=== PATIENT | male | born 1940 | race Caucasian/White ===

== ENCOUNTER 2016-05-19 15:45 | Outpatient (CLI) | payer MEDICARE, OTHER | END 2016-05-19 15:46 | disposition home or self-care (01) | DX: Z85.46 Personal history of malignant neoplasm of prostate (principal) ==

== ENCOUNTER 2016-08-02 20:03 | Emergency (ER) | payer MEDICARE, OTHER ==
[2016-08-02] MEDS ORDERED: DEXAMETHASONE 10 MG/ML VIAL PO STA (20:43)
--- NOTE | 2016-08-02 20:46 | ED Physician Documentation ---
History of Present Illness - Stated complaint Stated Complaint: DIZZINESS - Chief complaint Chief Complaint: Neuro - History obtained from History obtained from: Patient, Family - History of Present Illness Timing: Today - Additonal information Additional information: 75 y/o male has not felt well all week. This evening he developed acute dizziness accompanied by tinitus and fullness in the ears. He has been in to see his PMD and was put on some anti-histamine and this helped. Review of Systems Constitutional: denies: Fever, Chills Eyes: denies: Decreased vision Ears: reports: Ear pain, Tinnitus/ringing. denies: Drainage/discharge Nose: reports: Congestion Throat: denies: Sore throat Cardiac: denies: Chest pain / pressure, Palpitations Respiratory: denies: Dyspnea, Cough GI: denies: Abdominal Pain, Nausea, Vomiting : denies: Dysuria, Frequency Skin: denies: Rash Musculoskeletal: denies: Neck pain, Back pain, Extremity pain Neurologic: reports: Headache, Other (dizziness.). denies: Generalized weakness , Head injury, LOC PD PAST MEDICAL HISTORY - Past Medical History Cardiovascular: High cholesterol GI: GERD - Past Surgical History Past Surgical History: Yes HEENT: Cataracts - Present Medications Home Medications: Ambulatory Orders Medication Instructions Recorded Confirmed Aspirin [Ecotrin] 81 mg PO DAILY 05/23/14 05/23/14 Azithromycin [Zithromax] 250 mg PO DAILY #4 tablet 08/02/16 Cetirizine [ZyrTEC] 10 mg PO DAILY 08/02/16 08/02/16 Magnesium Citrate 400 mg PO DAILY 08/02/16 08/02/16 Multivitamin [Multiple Vitamins] 1 tab PO DAILY 08/02/16 08/02/16 raNITIdine [Zantac] 150 mg PO BID 08/02/16 08/02/16 - Allergies Allergies/Adverse Reactions: Allergies Allergy/AdvReac Type Severity Reaction Status Date / Time No Known Drug Allergies Allergy Verified 05/23/14 14:21 - Social History Does the pt smoke?: No Smoking Status: Never smoker PD ED PE NORMAL - Vitals Vital signs reviewed: Yes (hypertensive ) - General General: Alert and 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, No acute distress, Well developed/nourished - HEENT HEENT: Atraumatic, PERRL, EOMI, Other (The right TM is mildly inflammed with rounding of the umbo the left is with minimal inflamation. ) - Neck Neck: Supple, no meningeal sign, No bony TTP - Cardiac Cardiac: RRR, No murmur - Respiratory Respiratory: No respiratory distress, Clear bilaterally - Abdomen Abdomen: Soft, Non tender - Back Back: No CVA TTP, No spinal TTP - Derm Derm: Normal color, Warm and dry, No rash - Extremities Extremities: No deformity, No edema - Neuro Neuro: No motor deficit, No sensory deficit - Psych Psych: Normal mood, Normal affect Results - Vitals Vitals: Vital Signs - 24 hr 08/02/16 20:05 Temperature 36.0 C L Heart Rate 86 Respiratory 16 Rate Blood Pressure 168/82 H O2 Saturation 100 Oxygen O2 Source Room air - EKG (time done) 2021 Rate: Rate (enter#) (87) Rhythm: NSR Other comments: Other comments (RVH) Compare to prior EKG: Unchanged from prior EKG Computer interpretation: Agree with computer - Labs Labs: Laboratory Tests 08/02/16 08/02/16 08/02/16 21:00 21:00 21:00 WBC 5.4 RBC 3.65 L Hgb 12.2 L Hct 36.5 L MCV 99.8 H MCH 33.3 H MCHC 33.4 RDW 13.0 Plt Count 204 MPV 7.9 Neut # 2.4 Lymph # 2.0 Delta # 0.6 Eos # 0.3 Baso # 0.0 Absolute Nucleated RBC 0.01 Nucleated RBCs 0.2 Sodium 139 Potassium 3.8 Chloride 106 Carbon Dioxide 25 Anion Gap 8.0 BUN 27 H Creatinine 0.9 Estimated GFR (MDRD) 82 L Glucose 138 H Calcium 9.3 Total Bilirubin 0.4 AST 20 ALT 17 Alkaline Phosphatase 63 Troponin I < 0.04 Total Protein 6.3 L Albumin 4.1 Globulin 2.2 Albumin/Globulin Ratio 1.9 Lipase 23 - Rads (name of study) 2 view chest Radiology: Prelim report reviewed Procedures - IVC sono (time) 2039 Bedside IVC sono: IVC measures (cm) (1.34), IVC collapsed c insp (cm) (complete) , Dehydration (mild) PD MEDICAL DECISION MAKING - ED course Complexity details: reviewed old records, reviewed results, re-evaluated patient , considered differential, d/w patient, d/w family ED course: 75 y /o male happy to be alive for another week has developed dizziness tonight without nystagmus and without symptoms at the time I examined the patient. He has had symptoms with his ears bothering him and he has had some sinus congestion and on exam he has minimal inflamation in the right TM with rounding of the umbo and erythema. He is given decadron and we will put him on some zithromax. Departure - Departure Disposition: 01 Home, Self Care Clinical Impression: Dehydration Otitis media Qualifiers: Otitis media type: suppurative Laterality: right Chronicity: acute Recurrence: not specified as recurrent Spontaneous tympanic membrane rupture: without spontaneous rupture Qualified Code(s): H66.001 - Acute suppurative otitis media without spontaneous rupture of ear drum, right ear Condition: Stable Instructions: ED Otitis Media Acute Adult, ED Dehydration Follow-Up: Alison Puga DO [Primary Care Provider] - Prescriptions: Azithromycin [Zithromax] 250 mg PO DAILY #4 tablet
[2016-08-02] MEDS ORDERED: DEXAMETHASONE 10 MG/ML VIAL ONE (20:52)
[2016-08-02] MEDS ORDERED: CHERRY SYRUP 10 ML UDC PO ONE (20:52)
[2016-08-02 21:16] LABS: BASOPHILS % (AUTO) 0.8 %; EOSINOPHILS # (AUTO) 0.3 10^3/uL (0.0-0.7); EOSINOPHILS % (AUTO) 5.6 %; HCT - HEMATOCRIT 36.5 % (42.0-52.0); HGB - HEMOGLOBIN 12.2 g/dL (14.0-18.0); LYMPHOCYTES % (AUTO) 37.8 %; MEAN CORPUSCULAR HEMOGLOBIN 33.3 pg (27.0-31.0); MEAN CORPUSCULAR HGB CONC 33.4 g/dL (32.0-36.0); MEAN CORPUSCULAR VOLUME 99.8 fL (80.0-94.0); MEAN PLATELET VOLUME 7.9 fL (7.4-11.4); MONOCYTES # (AUTO) 0.6 10^3/uL (0.0-1.0); MONOCYTES % (AUTO) 10.8 %; NEUTROPHILS # (AUTO) 2.4 10^3/uL (1.5-6.6); NUCLEATED RED BLOOD CELLS AUTO 0.2 /100WBC; RED BLOOD COUNT 3.65 10^6/uL (4.70-6.10); UNCORRECTED WHITE BLOOD COUNT 5.4 x10^3/uL; WHITE BLOOD COUNT 5.4 x10^3/uL (4.8-10.8)
[2016-08-02 21:27] LABS: ALBUMIN/GLOBULIN RATIO 1.9 (1.0-2.2); BILIRUBIN,TOTAL 0.4 mg/dL (0.2-1.0); CALCIUM 9.3 mg/dL (8.5-10.3); CREATININE 0.9 mg/dL (0.6-1.2); POTASSIUM 3.8 mmol/L (3.5-5.0); TOTAL PROTEIN 6.3 g/dL (6.7-8.2)
[2016-08-02] MEDS ORDERED: AZITHROMYCIN 250 MG TABLET PO STA (22:26)
[2016-08-02] MEDS ORDERED: AZITHROMYCIN 250 MG TABLET PO ONE (22:39)
[2016-08-02 22:44] VITALS: BP 143/80
== END 2016-08-02 22:45 | disposition home or self-care (01) ==
LOC: ED 20:03
DX: E86.0 Dehydration (principal); H66.001 Acute suppurative otitis media without spontaneous rupture of ear drum, right ear; R42 Dizziness and giddiness; R09.81 Nasal congestion; Z79.82 Long term (current) use of aspirin
CPT/HCPCS: 36415; 80053; 83690; 84484; 85025; 93005; 93010; 99283; 99284; A9270

== ENCOUNTER 2017-04-06 08:00 | Outpatient (CLI) | payer MEDICARE, OTHER ==
[2017-04-06 13:05] LABS: ALBUMIN/GLOBULIN RATIO 1.6 (1.0-2.2); ALKALINE PHOSPHATASE 52 IU/L (42-121); ALT ALANINE AMINOTRANSFERASE 17 IU/L (10-60); AST ASPARTATE AMINOTRANSFERASE 20 IU/L (10-42); BILIRUBIN,TOTAL 0.7 mg/dL (0.2-1.0); BUN - BLOOD UREA NITROGEN 27 mg/dL (6-20); CALCIUM 9.2 mg/dL (8.5-10.3); CARBON DIOXIDE - CO2 25 mmol/L (21-32); CHLORIDE 103 mmol/L (101-111); CHOL/HDL RATIO 3.3 (<5.0); CHOLESTEROL 154 mg/dL; CREATININE 1.1 mg/dL (0.6-1.2); GFR - MDRD 65 (>89); GLUCOSE 102 mg/dL (70-100); HDL CHOLESTEROL 46 mg/dL; LDL CHOLESTEROL,CALCULATED 90 mg/dL; SODIUM 136 mmol/L (135-145); TOTAL PROTEIN 6.5 g/dL (6.7-8.2); VLDL CHOLESTEROL 18 mg/dL
[2017-04-06 13:31] LABS: BASOPHILS % (AUTO) 0.5 %; EOSINOPHILS # (AUTO) 0.3 10^3/uL (0.0-0.7); EOSINOPHILS % (AUTO) 4.5 %; HGB - HEMOGLOBIN 12.1 g/dL (14.0-18.0); LYMPHOCYTES # (AUTO) 2.5 10^3/uL (1.5-3.5); LYMPHOCYTES % (AUTO) 43.8 %; MEAN CORPUSCULAR HEMOGLOBIN 33.9 pg (27.0-31.0); MEAN CORPUSCULAR HGB CONC 33.5 g/dL (32.0-36.0); MEAN CORPUSCULAR VOLUME 101.4 fL (80.0-94.0); MONOCYTES # (AUTO) 0.6 10^3/uL (0.0-1.0); MONOCYTES % (AUTO) 9.8 %; NEUTROPHILS # (AUTO) 2.4 10^3/uL (1.5-6.6); NEUTROPHILS % (AUTO) 41.4 %; PLT - PLATELET COUNT 243 10^3/uL (130-450); RED BLOOD COUNT 3.56 10^6/uL (4.70-6.10); RED CELL DISTRIBUTION WIDTH 12.8 % (12.0-15.0); WHITE BLOOD COUNT 5.7 x10^3/uL (4.8-10.8)
== END 2017-04-06 08:01 | disposition home or self-care (01) ==
LOC: LAB.WCP 08:00
PROVIDERS: ATTEND Family Medicine
DX: R63.5 Abnormal weight gain (principal); Z85.46 Personal history of malignant neoplasm of prostate; E78.5 Hyperlipidemia, unspecified; E04.1 Nontoxic single thyroid nodule; D64.9 Anemia, unspecified
CPT/HCPCS: 36415; 80053; 80061; 84153; 84443; 85025

== ENCOUNTER 2017-09-28 17:03 | Outpatient (CLI) | payer MEDICARE, OTHER ==
--- NOTE | 2017-09-28 23:17 | Ultrasound Report ---
Procedure Date: 09/28/2017 Accession Number: [id number] / [id number] Procedure: US - Duplex Ext Veins Left CPT Code: FULL RESULT: EXAM: LEFT LOWER EXTREMITY VENOUS ULTRASOUND. EXAM DATE: 09/28/2017 05:26 PM. CLINICAL HISTORY: Leg edema, left. COMPARISON: None. TECHNIQUE: Real-time sonographic vascular imaging was performed by the structures assembler through the lower extremity utilizing both color-flow and Doppler spectral analysis. Multiple branch service representative static images were saved for review. FINDINGS: Common Femoral Vein (CFV): Normal. CFV-GSV Junction: Normal. Profunda Femoral Vein (PFV): Normal. Femoral Vein (FV) Prox: Normal. Femoral Vein (FV) Mid: Normal. Femoral Vein (FV) Dist: Normal. Popliteal Vein: Normal. Posterior Tibial Veins: Normal. Peroneal Veins: Normal. Contralateral Side CFV: Normal. Other: Peroneal vein not well seen. IMPRESSION: 1. Suboptimal visualization of peroneal vein due to soft tissue edema and body habitus. 2. Given the limitations, no evidence for deep venous thrombosis. RADIA
== END 2017-09-28 17:04 | disposition home or self-care (01) ==
LOC: DI 17:03
PROVIDERS: ATTEND Family Medicine
DX: R60.0 Localized edema (principal)

== ENCOUNTER 2018-06-08 08:41 | Outpatient (CLI) | payer MEDICARE, OTHER ==
--- NOTE | 2018-06-08 09:42 | Mammography Report ---
Reason: MASTALGIA Procedure Date: 06/08/2018 Accession Number: [id number] / [id number] Procedure: LY - Diagnostic Dig Bilat CPT Code: FULL RESULT: EXAM: Diagnostic Dig Bilat DATE: 06/08/2018 9:31 AM CLINICAL HISTORY: 77-year-old male with prior history of benign excisional left breast in 1966 possibly for gynecomastia. Long-term swelling with occasional tenderness in the right breast. TECHNIQUE: Bilateral CC and MLO views were obtained. COMPARISON: None FINDINGS: The breasts demonstrate diffuse fatty replacement bilaterally. Right breast: There is a mild to moderate volume of parenchymal tissue in the subareolar breast, corresponding to area of symptoms. There are no suspicious masses, calcifications or areas of distortion. Left breast: There are changes of prior excisional biopsy. Small amount of subareolar parenchymal tissue is present. There are no suspicious masses, calcifications or areas of nonoperative distortion. IMPRESSION: Right breast: Mild to moderate gynecomastia corresponds to site of patient's symptoms. Benign. BI-RADS Category 2. Clinical follow-up is recommended; patient was advised to return for any increase in current symptoms or new symptoms/concerns. Otherwise no recommendations for imaging follow-up. Left breast: Benign. BI-RADS Category 2. BI-RADS CATEGORY 2: Benign findings STANDARD QUALIFYING STATEMENTS: 1. This examination was not reviewed with the aid of Computer-Aided Detection (CAD). 2. A negative or benign imaging report should not preclude biopsy if clinically suspicious findings are present. 3. Dense breasts may obscure an underlying neoplasm. 4. This examination was reviewed without the aid of 3D breast imaging (tomosynthesis).
== END 2018-06-08 08:42 | disposition home or self-care (01) ==
LOC: DI 08:41
PROVIDERS: ATTEND Family Medicine
DX: N62 Hypertrophy of breast (principal)
CPT/HCPCS: 77066

== ENCOUNTER 2018-08-03 07:24 | Outpatient (CLI) | payer MEDICARE, OTHER ==
[2018-08-03 12:29] LABS: BASOPHILS % (AUTO) 0.8 %; EOSINOPHILS # (AUTO) 0.3 10^3/uL (0.0-0.7); HGB - HEMOGLOBIN 12.4 g/dL (14.0-18.0); LYMPHOCYTES # (AUTO) 1.8 10^3/uL (1.5-3.5); MEAN CORPUSCULAR HGB CONC 33.7 g/dL (32.0-36.0); MEAN CORPUSCULAR VOLUME 100.9 fL (80.0-94.0); MEAN PLATELET VOLUME 8.4 fL (7.4-11.4); MONOCYTES # (AUTO) 0.5 10^3/uL (0.0-1.0); MONOCYTES % (AUTO) 10.6 %; NEUTROPHILS % (AUTO) 43.6 %; PLT - PLATELET COUNT 214 10^3/uL (130-450); RED BLOOD COUNT 3.64 10^6/uL (4.70-6.10); RED CELL DISTRIBUTION WIDTH 13.1 % (12.0-15.0); WHITE BLOOD COUNT 4.6 x10^3/uL (4.8-10.8)
[2018-08-03 13:29] LABS: ALBUMIN 3.6 g/dL (3.2-5.5); ALBUMIN/GLOBULIN RATIO 1.4 (1.0-2.2); ALKALINE PHOSPHATASE 53 IU/L (42-121); ALT ALANINE AMINOTRANSFERASE 16 IU/L (10-60); AST ASPARTATE AMINOTRANSFERASE 20 IU/L (10-42); BILIRUBIN,TOTAL 0.7 mg/dL (0.2-1.0); BUN - BLOOD UREA NITROGEN 24 mg/dL (6-20); CALCIUM 9.1 mg/dL (8.5-10.3); CARBON DIOXIDE - CO2 25 mmol/L (21-32); CHLORIDE 106 mmol/L (101-111); CHOL/HDL RATIO 3.6 (<5.0); CHOLESTEROL 145 mg/dL; CREATININE 0.9 mg/dL (0.6-1.2); GFR - MDRD 82 (>89); GLUCOSE 98 mg/dL (70-100); HDL CHOLESTEROL 40 mg/dL; LDL CHOLESTEROL,CALCULATED 90 mg/dL; LDL/HDL RATIO 2.3 (<3.6); SODIUM 138 mmol/L (135-145); TOTAL PROTEIN 6.1 g/dL (6.7-8.2); VLDL CHOLESTEROL 15 mg/dL
== END 2018-08-03 07:25 | disposition home or self-care (01) ==
LOC: LAB.WCP 07:24
PROVIDERS: ATTEND Family Medicine
DX: E78.5 Hyperlipidemia, unspecified (principal); Z79.899 Other long term (current) drug therapy; Z85.46 Personal history of malignant neoplasm of prostate
CPT/HCPCS: 36415; 80053; 80061; 83721; 84153; 85025

== ENCOUNTER 2018-11-01 14:14 | Observation (INO) | payer MEDICARE, OTHER ==
[2018-11-01] MEDS ORDERED: NITROGLYCERIN 2% PASTE TOP STA (14:26)
[2018-11-01] MEDS ORDERED: ASPIRIN CHEW 81 MG TABLET PO STA (14:26)
--- NOTE | 2018-11-01 14:33 | ED Physician Documentation ---
PD HPI CHEST PAIN - Stated complaint Stated Complaint: CHEST PX - Chief complaint Chief Complaint: Cardiac - History obtained from History obtained from: Patient - History of Present Illness Timing - onset: Today (78-year-old gentleman with no history of coronary disease, had a negative chest pain work-up at [facility] for him consisting of stress testing about 2 years ago. He had a mild episode of brief chest pain a couple of weeks ago and today developed substernal chest pressure with dizziness radiating to the left arm and left jaw with light activity about a half an hour ago. He feels somewhat better now but has some residual pressure.) Review of Systems Ten Systems: 10 systems reviewed and negative Constitutional: denies: Fever, Chills Cardiac: reports: Chest pain / pressure, Palpitations (pounding) Respiratory: denies: Dyspnea, Cough GI: denies: Abdominal Pain, Nausea, Vomiting, Diarrhea Musculoskeletal: denies: Neck pain, Back pain, Pain with weight bearing PD PAST MEDICAL HISTORY - Past Medical History Cardiovascular: High cholesterol Respiratory: None Endocrine/Autoimmune: None GI: GERD : Other HEENT: None Psych: None Musculoskeletal: None Derm: None - Past Surgical History Past Surgical History: Yes HEENT: Cataracts - Present Medications Home Medications: Ambulatory Orders Medication Instructions Recorded Confirmed Aspirin [Ecotrin] 81 mg PO DAILY 05/23/14 05/23/14 Azithromycin [Zithromax] 250 mg PO DAILY #4 tablet 08/02/16 Cetirizine [ZyrTEC] 10 mg PO DAILY 08/02/16 08/02/16 Magnesium Citrate 400 mg PO DAILY 08/02/16 08/02/16 Multivitamin [Multiple Vitamins] 1 tab PO DAILY 08/02/16 08/02/16 raNITIdine [Zantac] 150 mg PO BID 08/02/16 08/02/16 - Allergies Allergies/Adverse Reactions: Allergies Allergy/AdvReac Type Severity Reaction Status Date / Time No Known Drug Allergies Allergy Verified 05/23/14 14:21 - Social History Does the pt smoke?: No Smoking Status: Never smoker Does the pt drink ETOH?: No Does the pt have substance abuse?: No - Family History Family history: reports: Non contributory PD ED PE NORMAL - Vitals Vital signs reviewed: Yes - General General: Alert and 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, No acute distress - HEENT HEENT: PERRL, EOMI - Neck Neck: Supple, no meningeal sign, No bony TTP - Cardiac Cardiac: Other (slight tachycardia, reg, no murmur) - Respiratory Respiratory: No respiratory distress, Clear bilaterally - Abdomen Abdomen: Non tender - Derm Derm: Normal color, Warm and dry - Extremities Extremities: No edema, No calf tenderness / cord, Other (venous stasis chgs of both legs, chronic per pt.) - Neuro Neuro: Alert and 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, Normal speech - Psych Psych: Normal mood, Normal affect Results - Vitals Vitals: Vital Signs - 24 hr 11/01/18 11/01/18 14:17 14:44 Temperature 36.5 C Heart Rate 99 91 Respiratory 16 19 Rate Blood Pressure 181/90 H 140/79 H O2 Saturation 96 97 Oxygen O2 Source Room air - EKG (time done) 1418 Rate: Rate (enter#) (103) Rhythm: Sinus tachycardia [place]: Normal Intervals: Prolonged [place] (mild, 217msec) Ischemia: Non specific changes (V mild STD V3-V6 Which is old compared with August 022016, last EKG on the chart.) Compare to prior EKG: Unchanged from prior EKG Computer interpretation: Agree with computer - Labs Labs: Laboratory Tests 11/01/18 11/01/18 11/01/18 08:46 14:25 14:25 WBC 6.9 RBC 3.75 L Hgb 12.5 L Hct 38.6 L MCV 102.9 H MCH 33.3 H MCHC 32.4 RDW 12.4 Plt Count 207 MPV 9.6 Neut # (Auto) 3.2 Lymph # (Auto) 2.6 [place] # (Auto) 0.7 Eos # (Auto) 0.3 Baso # (Auto) 0.0 Absolute Nucleated RBC 0.00 Nucleated RBC % 0.0 D-Dimer < 200.0 L Sodium 141 Potassium 4.0 Chloride 104 Carbon Dioxide 23 Anion Gap 14.0 H BUN 29 H Creatinine 1.3 H Estimated GFR (MDRD) 54 L Glucose 145 H Calcium 9.7 Total Bilirubin 0.7 AST 22 ALT 18 Alkaline Phosphatase 64 Troponin I High Sens Total Protein 7.2 Albumin 4.5 Globulin 2.7 Albumin/Globulin Ratio 1.7 Lipase 28 11/01/18 11/01/18 14:25 16:26 WBC RBC Hgb Hct MCV MCH MCHC RDW Plt Count MPV Neut # (Auto) Lymph # (Auto) [place] # (Auto) Eos # (Auto) Baso # (Auto) Absolute Nucleated RBC Nucleated RBC % D-Dimer Sodium Potassium Chloride Carbon Dioxide Anion Gap BUN Creatinine Estimated GFR (MDRD) Glucose Calcium Total Bilirubin AST ALT Alkaline Phosphatase Troponin I High Sens 7.2 13.7 Total Protein Albumin Globulin Albumin/Globulin Ratio Lipase - Rads (name of study) 1v chest Radiology: EMP read contemporaneously (Mild patchy opacity In the lateral left lung base consistent with atelectasis. Vague nodule left perihilar density which may correspond to nodule seen on prior chest CT.) PD MEDICAL DECISION MAKING - ED course ED course: 78-year-old gentleman with chest pain episode today, improved but not quite gone on arrival. His EKG is unchanged from prior. He does have hypercholesterolemia. Negative stress a few years ago. Heart score is 4. Second troponin also negative, but note that it did go up from 7-13. As such she will be placed in observation for serial monitoring, spoke with Dr. Chopra for observation at 5 PM. Departure - Departure Disposition: ED Place in Observation Clinical Impression: Chest pain Qualifiers: Chest pain type: unspecified Qualified Code(s): R07.9 - Chest pain, unspecified Condition: Stable
[2018-11-01 14:41] LABS: BASOPHILS % (AUTO) 0.6 %; EOSINOPHILS # (AUTO) 0.3 10^3/uL (0.0-0.7); EOSINOPHILS % (AUTO) 4.2 %; HGB - HEMOGLOBIN 12.5 g/dL (14.0-18.0); LYMPHOCYTES # (AUTO) 2.6 10^3/uL (1.5-3.5); LYMPHOCYTES % (AUTO) 38.2 %; MEAN CORPUSCULAR HEMOGLOBIN 33.3 pg (27.0-31.0); MEAN CORPUSCULAR HGB CONC 32.4 g/dL (32.0-36.0); MEAN CORPUSCULAR VOLUME 102.9 fL (80.0-94.0); MEAN PLATELET VOLUME 9.6 fL (7.4-11.4); MONOCYTES # (AUTO) 0.7 10^3/uL (0.0-1.0); MONOCYTES % (AUTO) 9.9 %; NEUTROPHILS # (AUTO) 3.2 10^3/uL (1.5-6.6); NEUTROPHILS % (AUTO) 46.8 %; PLT - PLATELET COUNT 207 10^3/uL (130-450); RED BLOOD COUNT 3.75 10^6/uL (4.70-6.10); RED CELL DISTRIBUTION WIDTH 12.4 % (12.0-15.0); WHITE BLOOD COUNT 6.9 x10^3/uL (4.8-10.8)
[2018-11-01 14:52] LABS: ALBUMIN 4.5 g/dL (3.2-5.5); ALBUMIN/GLOBULIN RATIO 1.7 (1.0-2.2); BILIRUBIN,TOTAL 0.7 mg/dL (0.2-1.0); CALCIUM 9.7 mg/dL (8.5-10.3); CREATININE 1.3 mg/dL (0.6-1.2); TOTAL PROTEIN 7.2 g/dL (6.7-8.2)
--- NOTE | 2018-11-01 15:00 | XRAY Report ---
Reason: chest pain Procedure Date: 11/01/2018 Accession Number: [id number] / [id number] Procedure: XR - Chest 1 View X-Ray CPT Code: 84864 FULL RESULT: EXAM: CHEST RADIOGRAPHY EXAM DATE: 11/01/2018 02:34 PM. CLINICAL HISTORY: Chest pain. COMPARISON: CHEST 2 VIEW PA/LAT 05/23/2014 3:15 PM CHEST W/ 11/19/2014 1:08 PM. TECHNIQUE: 1 view. FINDINGS: Heart size is normal. Calcified plaques in the aortic arch. No consolidation, pleural effusion, pneumothorax. Mild patchy opacity in the left costophrenic angle. There is a vague 1.3 cm nodular density in the left perihilar region, which may correspond to the nodule seen on the prior CT chest from 2014. IMPRESSION: Mild patchy opacity in the lateral left lung base likely representing atelectasis. Otherwise no acute cardiopulmonary findings. Vague nodular density in the left perihilar region, which may correspond to the nodule seen on the prior CT chest from October 2014. RADIA
[2018-11-01] MEDS ORDERED: ACETAMINOPHEN 325 MG TABLET PO PRN (16:58)
[2018-11-01] MEDS ORDERED: oxyCODONE 5 MG TABLET PO PRN (16:58)
[2018-11-01] MEDS ORDERED: SODIUM CHLORIDE FLUSH 0.9% 10 ML SYRINGE IVP PRN (16:58)
[2018-11-01] MEDS ORDERED: ONDANSETRON ODT 4 MG TABLET TL PRN (16:58)
[2018-11-01] MEDS ORDERED: ATORVASTATIN 40 MG TABLET PO STA (17:40)
[2018-11-01] MEDS ORDERED: ONDANSETRON 4 MG/2 ML VIAL IVP PRN (17:47)
--- NOTE | 2018-11-01 17:49 | HISTORY & PHYSICAL EXAMINATION ---
Chief Complaint - Chief Complaint Chief Complaint: chest pain History of Present Illness - History of Present Illness HPI Comment/Other: Mr. Shell is a 78-year-old gentleman with hx of GERD, HLD, and chest pain for three times in the past, which he had negative stress testing about [address] [facility], no known history of coronary disease, who present ER complain chest pain. pt report his chest pain "move" from anterior chest to inferior chest, t hen allover his left chest. chest pain is like-dull, does not radiate to other locations. his chest pain does not associate with shortness of breath, nausea, vomiting, diaphoresis. He report he has hx of GERD. He report he had a mild episode of brief chest pain a couple of weeks ago. He today developed substernal chest pressure with dizziness when he did his garden work. He report he did not drink enough water. His EKG is unchanged from prior. His first and Second troponin both were negative, but note that it did go up from 7 to 13 but still in the normal arrange in high sensitivity troponin test. pt is admitted in observation unit for chest pain work up. History - Past Medical History Cardiovascular: reports: High cholesterol Respiratory: reports: None Endocrine/Autoimmune: reports: None GI: reports: GERD : reports: Other HEENT: reports: None Psych: reports: None Musculoskeletal: reports: None Derm: reports: None - Past Surgical History HEENT: reports: Cataracts - Family & Social History Family History Comment/Other: pt report he is living at [place]. he has been working at [employer] for over 30 yrs. he walked with every day for 2-3 miles. Social History Notes: he report he stopped cigarette somking about 25 yrs ago, social drink, denies drug issue. - POLST POLST Status: Full Code Meds/Allgy - Home Medications Home Medications: Ambulatory Orders Medication Instructions Recorded Confirmed Aspirin [Ecotrin] 81 mg PO TUFR 05/23/14 11/01/18 Cetirizine [ZyrTEC] 10 mg PO DAILY 08/02/16 11/01/18 Multivitamin [Multiple Vitamins] 1 tab PO DAILY 08/02/16 11/01/18 raNITIdine [Zantac] 150 mg PO BID 08/02/16 08/02/16 - Allergies Allergies/Adverse Reactions: Allergies Allergy/AdvReac Type Severity Reaction Status Date / Time No Known Drug Allergies Allergy Verified 05/23/14 14:21 Review of Systems - Constitutional Constitutional: denies: Fatigue, Fever, Chills, Malaise, Weakness, Poor appetite, Diaphoresis, Night sweats, Weight gain, Weight loss - Eyes Eyes: denies: Pain, Irritation, Amaurosis, Blurred vision, Spots in vision, Field loss, Vision loss, Dipolpia, Corrective lenses - Ears, Nose & Throat Ears, Nose & Throat: denies: Ear pain, Hearing loss, Hearing aids, Tinnitus, Vertigo, Nasal pain, Nasal discharge, Nosebleeds, Nasal obstruction, Nasal congestion, Postnasal drainage, Dentures, Sore throat, Hoarseness, Mouth lesions, Bleeding gums - Cardiovascular Cariovascular: reports: Chest pain. denies: Irregular heart rate, Palpitations, Edema, Lightheadedness, Syncope, Exertional dyspnea, Decr. exercise tolerance - Respiratory Respiratory: denies: Cough, Sputum production, Wheezing, Snoring, Hemoptysis, Orthopnea, SOB at rest, SOB with exertion, Apnea, Stridor - Gastrointestinal Gastrointestinal: denies: Abdominal pain, Abdominal distention, Constipation, Diarrhea, Change in bowel habits, Rectal bleeding, Black stools, Bloody stools, Nausea, Vomiting, Bile emesis, Cain blood emesis, Coffee grounds emesis, Reflux/heartburn - Genitourinary Genitourinary: denies: Dysuria, Frequency, Urgency, Hematuria, Incontinence, Flank pain, Nocturia, Urethral discharge - Musculoskeletal Musculoskeletal: denies: Muscle pain, Back pain, Muscle aches, Stiffness, Limited range of motion, Muscle weakness, Gout, Joint pain, Joint swelling - Integumentary Integumentary: denies: Rash, Pruritis, Lesions, Dryness, Lumps, Acne, Pigment changes, Nail changes - Neurological Neurological: denies: General weakness, Focal weakness, Headache, Dizziness, Numbness, Memory problems, Pre-existing deficit, Abnormal gait, Seizures, Incoordination, Slurred speech - Psychiatric Psychiatric: denies: Depression, Anxiety, Suicidal, Delusions, Hallucinations, Homicidal - Endocrine Endocrine: denies: Polyuria, Polydypsia, Polyphagia, Intolerance to cold - Hematologic/Lymphatic Hematologic/Lymphatic: denies: Anemia, Bruising, Petechiae, Blood clots, Lymphadenopathy, Bleeding tendencies Exam - Vital Signs Reviewed Vital Signs: Yes Vital Signs: Vital Signs x48h Temp Pulse Resp BP Pulse Ox 11/01/18 17:10 77 19 137/81 H 99 11/01/18 14:44 91 19 140/79 H 97 11/01/18 14:17 36.5 C 99 16 181/90 H 96 - Physical Exam General Appearance: positive: No acute distress, Alert. negative: Lethargic Eyes Bilateral: positive: Normal inspection, PERRL, No lid inflammation, Conjunctivae nml ENT: positive: ENT inspection nml, Pharynx nml, No signs of dehydration. negative: Purulent nasal drainage, Pharyngeal erythema, Oral lesions Neck: positive: Thyroid nml, No JVD, Trachea midline. negative: Thyromegaly, Lymphadenopathy (R), Lymphadenopathy (L), Stiff neck, Swelling/bruising, Tracheal deviation Respiratory: positive: Chest non-tender, No respiratory distress, Breath sounds nml. negative: Wheezes, Rales, Rhonchi Cardiovascular: positive: Regular rate & rhythm, No murmur, No gallop. n egative: Irregularly irregular, Extrasystoles, Tachycardia, Bradycardia, JVD present, Systolic murmur, Diastolic murmur Peripheral Pulses: positive: 2+ Abdomen: positive: Non-tender, No organomegaly, Nml bowel sounds, No distention. negative: Tenderness, Guarding, Rebound Back: positive: Nml inspection. negative: CVA tenderness (R), CVA tenderness (L) Skin: positive: Color nml, No rash, Warm, Dry. negative: Cyanosis, Diaphoresis, Pallor Extremities: positive: Non-tender, Full ROM, Nml appearance. negative: Calf tenderness, Joint swelling, Jessica's sign/cords Neurologic/Psychiatric: positive: Oriented x3, Motor nml, Sensation nml, Mood/affect nml. negative: Weakness, Sensory loss, Facial droop, Slurred/abnml speech, Depressed mood/affect Sepsis Event Note (H) - Evaluation Current Stage of Sepsis: Ruled out Conclusion/Plan - Problem List (1) Chest pain Conclusion/Plan: so his test Troponin and EKG did not indicate ACS. we will finish serial troponin, EKG as needed, will order stress test ER already gave pt 325 mg Aspirin, continue aspirin will check Lipid panel and start Lipitor now tele and vital monitor check ECHO, will followup Qualifiers: Chest pain type: unspecified Qualified Code(s): R07.9 - Chest pain, unspecified (2) Dehydration Conclusion/Plan: pt report dehydration, and creatinine increase from 0.9 to 1.3 IVF of NS, lab monitor (3) GERD (gastroesophageal reflux disease) Conclusion/Plan: pt has hx of GERD, start Protonix (4) Mild chronic anemia Conclusion/Plan: pt has hx of mild chronic anemia. today his HGB is 12.6. pt is asymptomatic. Pt denies GI bleed continue lab monitor now (5) HLD (hyperlipidemia) Conclusion/Plan: we will check lipid panel, start on Lipitor now (6) Full code status Conclusion/Plan: pt clearly request full code - Lab Results Fish Bones: 11/02/18 04:15 11/02/18 04:15 Core Measures - Anticipated LOS I expect patient to be DC'd or transferred within 96 hours.: Yes - DVT/VTE - Prophylaxis VTE/DVT Device ordered at admit?: Yes VTE/DVT Prophylaxis med ordered at admit?: Yes
[2018-11-01] MEDS: SODIUM CHLORIDE FLUSH 0.9% 10 ML SYRINGE IVP SCH (18:09)
[2018-11-01] MEDS: PANTOPRAZOLE 40 MG TABLET PO SCH (18:41)
[2018-11-01] MEDS: SODIUM CHLORIDE 0.9% 1,000 ML IV SCH (18:41)
[2018-11-02] MEDS: SODIUM CHLORIDE FLUSH 0.9% 10 ML SYRINGE IVP SCH ×2 (03:32→10:15)
[2018-11-02] MEDS: SODIUM CHLORIDE 0.9% 1,000 ML IV SCH (04:30)
[2018-11-02 04:51] LABS: BASOPHILS % (AUTO) 0.7 %; EOSINOPHILS # (AUTO) 0.3 10^3/uL (0.0-0.7); EOSINOPHILS % (AUTO) 4.8 %; HGB - HEMOGLOBIN 10.6 g/dL (14.0-18.0); LYMPHOCYTES # (AUTO) 2.6 10^3/uL (1.5-3.5); LYMPHOCYTES % (AUTO) 45.5 %; MEAN CORPUSCULAR HEMOGLOBIN 34.3 pg (27.0-31.0); MEAN CORPUSCULAR HGB CONC 33.2 g/dL (32.0-36.0); MEAN CORPUSCULAR VOLUME 103.2 fL (80.0-94.0); MEAN PLATELET VOLUME 9.7 fL (7.4-11.4); MONOCYTES # (AUTO) 0.6 10^3/uL (0.0-1.0); MONOCYTES % (AUTO) 10.5 %; NEUTROPHILS # (AUTO) 2.2 10^3/uL (1.5-6.6); NEUTROPHILS % (AUTO) 38.2 %; PLT - PLATELET COUNT 173 10^3/uL (130-450); RED BLOOD COUNT 3.09 10^6/uL (4.70-6.10); RED CELL DISTRIBUTION WIDTH 12.3 % (12.0-15.0); WHITE BLOOD COUNT 5.8 x10^3/uL (4.8-10.8)
[2018-11-02 05:13] LABS: BUN - BLOOD UREA NITROGEN 26 mg/dL (6-20); CALCIUM 8.7 mg/dL (8.5-10.3); CARBON DIOXIDE - CO2 23 mmol/L (21-32); CHLORIDE 110 mmol/L (101-111); CHOL/HDL RATIO 3.7 (<5.0); CHOLESTEROL 129 mg/dL; CREATININE 1.2 mg/dL (0.6-1.2); GFR - MDRD 59 (>89); GLUCOSE 103 mg/dL (70-100); HDL CHOLESTEROL 35 mg/dL; LDL CHOLESTEROL,CALCULATED 81 mg/dL; LDL/HDL RATIO 2.3 (<3.6); MAGNESIUM 1.9 mg/dL (1.7-2.8); SODIUM 143 mmol/L (135-145); VLDL CHOLESTEROL 13 mg/dL
[2018-11-02] MEDS: PANTOPRAZOLE 40 MG TABLET PO SCH (06:48)
[2018-11-02] MEDS ORDERED: ENOXAPARIN 40 MG/0.4 ML SYRINGE SUBQ SCH (09:00)
[2018-11-02] MEDS ORDERED: POLYETHYLENE GLYCOL 3350 17 GM PACKET PO SCH (09:00)
[2018-11-02] MEDS ORDERED: ASPIRIN CHEW 81 MG TABLET PO SCH (09:00)
[2018-11-02 09:43] LABS: ABSOLUTE RETICS # AUTO 0.057 10^6/uL (0.020-0.110); RED BLOOD COUNT 3.47 10^6/uL (4.70-6.10)
[2018-11-02 09:56] LABS: % IRON SATURATION 33 % (20-50); IRON 95 ug/dL (45-182); TOTAL IRON BINDING CAPACITY 287 ug/dL (250-450); TRANSFERRIN 205 mg/dL (180-329)
[2018-11-02 10:18] LABS: FERRITIN 107.7 ng/mL (23.9-336.2)
[2018-11-02 15:59] VITALS: BP 144/71
--- NOTE | 2018-11-02 15:59 | Nuclear Medicine Report ---
Reason: chest pain Procedure Date: 11/02/2018 Accession Number: [id number] / [id number] Procedure: NM - Myocardial Perfusion STR/RST CPT Code: FULL RESULT: EXAM: SINGLE-ISOTOPE EXERCISE STRESS TEST. SINGLE-ISOTOPE AND ONE-DAY REST/STRESS MYOCARDIAL PERFUSION SCANS WITH TOMOGRAPHIC IMAGING, QUANTITATIVE ANALYSIS, WALL MOTION ANALYSIS AND CALCULATION OF EJECTION FRACTION. EXAM DATE: 11/02/2018 02:34 PM. CLINICAL HISTORY: Chest pain. COMPARISON: None available. TECHNIQUE: A rest myocardial perfusion scan was done with tomography after the intravenous administration of 10.1 mCi Tc-99m sestamibi. After an appropriate delay, a treadmill exercise stress was performed according to department protocol. The patient exercised for 7 minutes and 0 seconds. The maximum heart rate was 145 bpm, which was 101% of the maximum predicted heart rate of 143 bpm. At approximately peak heart rate, 40.9 mCi of Tc-99m sestamibi was injected for stress myocardial perfusion scan. Motion correction was applied when appropriate. Gated tomographic images were obtained for wall motion analysis and computation of left ventricular ejection fraction. FINDINGS: On visual analysis, there is attenuation artifact in the anteroseptal wall, more severe on the rest images compared to the stress images. No convincing reversible perfusion defects. Computer analysis suggests a defect in the lateral wall; this is not appreciated on visual analysis. Summed stress score 9 Summed rest score not calculated Summed difference score not calculated Wall motion analysis demonstrates no focal wall motion abnormality The left ventricular end-diastolic volume is 75 cc. The left ventricular end-systolic volume is 15 cc. The left ventricular ejection fraction is calculated to be 81%. IMPRESSION: 1. On visual analysis, no convincing significant fixed or reversible perfusion defects. There is a presumed attenuation artifact in the anteroseptal wall. 2. Normal left ventricular ejection fraction of 81%. 3. Normal segmental and global wall motion. 4. Normal left ventricular cavity size, no change with stress. 5. Computer analysis suggests a defect in the lateral wall; this is not appreciated on visual analysis. The computer did not calculate summed rest or summed difference scores. Please correlate findings with stress ECG tracings and procedure notes. [facility] ADDENDUM: 11/02/18 16:14 The technologist was able to resolve the computer processing issue. The injected radiotracer was technetium 99m tetrofosmin. Computer generated: Summed stress score 7 Summed rest score 2 Summed difference score 5 Computer analysis again suggests a reversible lateral wall defect which is not appreciated on visual analysis. Discussed by telephone with Dr. Humphreys at 1600 hrs.
--- NOTE | 2018-11-02 16:05 | Discharge Plan ---
Discharge Plan Problem Reviewed?: Yes Disposition: Home, Self Care Condition: Stable Diet: Regular Activity Restrictions: Activity as Tolerated Shower Restrictions: No (fall precaution) Instruction Topics: ED Chest Pain Atypical Unkn Cause, Dehydration, GERD Health Concerns: chest pain, atypical. dehydration Plan of Treatment: you likely have atypical chest pain. Your image studies including ECHO, EKG, stress test, and troponin tests are all unremarkable. please Keep you hydration special in summer and outdoor activities. Care Goals: stabilization of your medical condition Assessment: assessment as the above Additional Instructions or Follow Up instructions: you may followup your PCP in two weeks. Should your symptoms return or worsen, you may present ER or call 911 for help. No Smoking: If you smoke, Please STOP! Call for help. Follow-up with: Alison Puga DO [Primary Care Provider] -
--- NOTE | 2018-11-02 16:12 | DISCHARGE SUMMARY ---
Discharge Summary Discharge Date: 11/02/18 Discharging Provider: KEY Primary Care Provider: Inocencia Puga Condition at Discharge: Stable Discharge Disposition: 01 Home, Self Care Discharge Facility Name: home - DIAGNOSES Admission Diagnoses: (1) Chest pain (2) Dehydration (3) GERD (gastroesophageal reflux disease) (4) Mild chronic anemia (5) HLD (hyperlipidemia) Discharge Diagnoses with Status of Each Condition: 1) Chest pain resolved (2) Dehydration resolved (3) GERD (gastroesophageal reflux disease) stable (4) Mild chronic anemia stable (5) HLD (hyperlipidemia) stable - HPI History of Present Illness: Mr. Shell is a 78-year-old gentleman with hx of GERD, HLD, and chest pain for three times in the past, which he had negative stress testing about 2 years ago in [facility], no known history of coronary disease, who present ER complain chest pain. pt report his chest pain "move" from anterior chest to inferior chest, then allover his left chest. chest pain is like-dull, does not radiate to other locations. his chest pain does not associate with shortness of breath, nausea, vomiting, diaphoresis. He report he has hx of GERD. He report he had a mild epis ode of brief chest pain a couple of weeks ago. He today developed substernal chest pressure with dizziness when he did his garden work. He report he did not drink enough water. His EKG is unchanged from prior. His first and Second troponin both were negative, but note that it did go up from 7 to 13 but still in the normal arrange in high sensitivity troponin test. pt is admitted in observation unit for chest pain work up. - HOSPITAL COURSE Hospital Course: pt was admitted for chest pain. pt's serial troponin, EKG, ECHO, stress test all were unremarkable. it is likely atypical chest pain. 1) Chest pain resolved. It is likely atypical chest pain. pt repot he has no more chest pain. pt's EKG, ECHO, stress test all were unremarkable. (2) Dehydration resolved. pt is advised to keep hydration (3) GERD (gastroesophageal reflux disease) stable (4) Mild chronic anemia stable, followup PCP (5) HLD (hyperlipidemia) stable - ALLERGIES Allergies/Adverse Reactions: Allergies Allergy/AdvReac Type Severity Reaction Status Date / Time No Known Drug Allergies Allergy Verified 05/23/14 14:21 - MEDICATIONS Home Medications: Ambulatory Orders Medication Instructions Recorded Confirmed Aspirin [Ecotrin] 81 mg PO TUFR 05/23/14 11/01/18 Cetirizine [ZyrTEC] 10 mg PO DAILY 08/02/16 11/01/18 Multivitamin [Multiple Vitamins] 1 tab PO DAILY 08/02/16 11/01/18 raNITIdine [Zantac] 150 mg PO BID PRN 08/02/16 11/02/18 Simvastatin 20 mg PO QPM 11/02/18 11/02/18 - PHYSICAL EXAM AT DISCHARGE General Appearance: positive: No acute distress, Alert. negative: Lethargic Eyes Bilateral: positive: Normal inspection, PERRL, No lid inflammation, Conjunctivae nml ENT: positive: ENT inspection nml, Pharynx nml, No signs of dehydration. negative: Purulent nasal drainage, Pharyngeal erythema, Oral lesions Neck: positive: Nml inspection, Thyroid nml, No JVD, Trachea midline. negative: Thyromegaly, Lymphadenopathy (R), Lymphadenopathy (L), Stiff neck, Swelling/bruising, Tracheal deviation Respiratory: positive: Chest non-tender, No respiratory distress, Breath sounds nml. negative: Wheezes, Rales, Rhonchi Cardiovascular: positive: Regular rate & rhythm, No murmur, No gallop. negative: Irregularly irregular, Extrasystoles, Tachycardia, Bradycardia, JVD present, Systolic murmur, Diastolic murmur Peripheral Pulses: positive: 2+ Abdomen: positive: Non-tender, No organomegaly, Nml bowel sounds, No distention. negative: Tenderness, Guarding, Rebound Back: positive: Nml inspection. negative: CVA tenderness (R), CVA tenderness (L) Skin: positive: Color nml, No rash, Warm, Dry. negative: Cyanosis, Diaphoresis, Pallor, Skin rash Extremities: positive: Non-tender, Full ROM, Nml appearance. negative: Calf tenderness, Joint swelling, Jessica's sign/cords Neurologic/Psychiatric: positive: Oriented x3, Motor nml, Sensation nml, Mood/affect nml. negative: Weakness, Sensory loss, Facial droop, Slurred/abnml speech, Depressed mood/affect - LABS Result Diagrams: 11/02/18 04:15 11/02/18 04:15 - SEPSIS Current Stage of Sepsis: Ruled out - FOLLOW UP Follow Up: you may followup your PCP in two weeks. Should your symptoms return or worsen, you may present ER or call 911 for help. - TIME SPENT Time Spent in Discharge (Minutes): 50
--- NOTE | 2018-11-02 16:55 | CARDIAC PROCEDURE NOTE ---
Stress Test Report Service Date: 11/02/18 Service Time: 12:50 Ordering Provider: CLAUDIA Blakely Indication for Test: chest pain. Significant Medical History: 78-year-old white male with a history chest pain. He does have a history of gastroesophageal reflux disease. He now presents with another episode of chest pain. Dull, starting in the anterior upper chest and moving to the lower chest. Nonradiating. No shortness of breath, nausea, emesis, diaphoresis. No report of left arm pain or jaw pain. He had a brief episode of chest pressure 2 weeks ago which resolved on its own after a few seconds. Today he developed substernal chest pressure with dizziness when he was doing gardening work. He usually walks 2 miles daily at the [employer] and when it's winter, on a treadmill at home. Per his history, had a negative stress test in 2016, echocardiogram November 02, 2018 shows left ventricular wall thickness normal. Ejection fraction 70 to 75%. Diastolic function indeterminant. Mild to moderate increase in left atrial volume index. Moderate right atrial enlargement. Mild aortic sclerosis. No stenosis. RVSP at rest 47 mmHg. Cardiac Risk Factors: Male sex, hyperlipidemia. Denies smoking, diabetes, family history of CAD, or hypertension Type of Stress Test: ETT with Myocardial Perfusion Imaging Pharmacologic Agent: Lexiscan Procedure: Baseline EKG with normal sinus rhythm. Baseline heart rate 63 at rest. Normal axis. Slight RSR' pattern in V1 with early repolarization. No acute ischemic changes. Patient performed a treadmill exercise using a Nelson protocol. He completed 6 minutes and 58 seconds, and an estimated workload of 8.57 metabolic equivalents. The test was terminated due to fatigue and shortness of breath with leg stiffness. Isotope injected 1 minute before stopping test. No chest pain. The first 2 stages of Nelson protocol were quite easy for him and he considered it a light workload. He did not feel fatigue or shortness of breath until he entered the last part of stage II and was beginning stage III where his shortness of breath and leg fatigue made him stop. Good exercise tolerance. The maximum heart rate was 145 bpm which is 101% of maximum predicted heart rate. Preexercise his blood pressure was 158/64. During exercise he did reach a peak blood pressure of 178/68. Mildly blunted hypertensive response. Stress EKG continued to have sinus rhythm. A more pronounced RSR' in V1. Minimal nondiagnostic ST depression in the inferior limb leads and lateral leads. Not diagnostic of ischemia. Nonspecific. Rest EKG had occasional PVC and occasional PAC but no alarming ectopy. Findings: Negative EKG for acute ischemia. Good exercise tolerance. Low risk stratifi cation according to this EKG. Rest and stress imaging with isotope will be under separate dictation with Radia.
[2018-11-02] MEDS ORDERED: ATORVASTATIN 40 MG TABLET PO SCH ×2 (21:00)
== END 2018-11-02 17:00 | disposition home or self-care (01) ==
LOC: ED 14:14 → MS2 16:58
PROVIDERS: ADMIT Specialist; ATTEND Nurse Practitioner Gerontology
DX: R07.89 Other chest pain (principal); E86.0 Dehydration; K21.9 Gastro-esophageal reflux disease without esophagitis; D64.89 Other specified anemias; E78.5 Hyperlipidemia, unspecified; Z79.82 Long term (current) use of aspirin; Z79.899 Other long term (current) drug therapy; Z87.891 Personal history of nicotine dependence
CPT/HCPCS: 36415; 71045; 78452; 80048; 80053; 80061; 82607; 82728; 83540; 83615; 83690; 83735; 84466; 84484; 85025; 85044; 85379; 93005; 93017; 93306; 96360; 96361; 96372; 99284; 99285; A9270; A9500; G0378; J1650; 83721

== ENCOUNTER 2019-10-11 09:00 | Outpatient (CLI) | payer MEDICARE, OTHER | END 2019-10-11 23:59 | disposition home or self-care (01) | LOC: COV 09:00 | PROVIDERS: ATTEND Family Medicine | DX: R50.9 Fever, unspecified (principal); M79.10 Myalgia, unspecified site; R09.81 Nasal congestion; Z20.828 Contact with and (suspected) exposure to other viral communicable diseases ==

== ENCOUNTER 2019-11-29 08:00 | Outpatient (CLI) | payer MEDICARE, OTHER ==
[2019-11-29 12:19] LABS: BASOPHILS % (AUTO) 0.7 %; EOSINOPHILS # (AUTO) 0.3 10^3/uL (0.0-0.7); EOSINOPHILS % (AUTO) 5.7 %; HGB - HEMOGLOBIN 12.5 g/dL (14.0-18.0); LYMPHOCYTES # (AUTO) 2.3 10^3/uL (1.5-3.5); LYMPHOCYTES % (AUTO) 42.7 %; MEAN CORPUSCULAR HEMOGLOBIN 34.7 pg (27.0-31.0); MEAN CORPUSCULAR HGB CONC 33.5 g/dL (32.0-36.0); MEAN CORPUSCULAR VOLUME 103.6 fL (80.0-94.0); MONOCYTES # (AUTO) 0.6 10^3/uL (0.0-1.0); MONOCYTES % (AUTO) 10.7 %; NEUTROPHILS # (AUTO) 2.2 10^3/uL (1.5-6.6); PLT - PLATELET COUNT 208 10^3/uL (130-450); RED CELL DISTRIBUTION WIDTH 12.3 % (12.0-15.0); WHITE BLOOD COUNT 5.4 x10^3/uL (4.8-10.8)
[2019-11-29 12:57] LABS: FERRITIN 107.1 ng/mL (23.9-336.2)
[2019-11-29 13:02] LABS: % IRON SATURATION 32 % (20-50); ALBUMIN 4.1 g/dL (3.2-5.5); ALBUMIN/GLOBULIN RATIO 1.6 (1.0-2.2); ALKALINE PHOSPHATASE 57 IU/L (42-121); ALT ALANINE AMINOTRANSFERASE 18 IU/L (10-60); AST ASPARTATE AMINOTRANSFERASE 21 IU/L (10-42); BILIRUBIN,TOTAL 0.6 mg/dL (0.2-1.0); BUN - BLOOD UREA NITROGEN 27 mg/dL (6-20); CALCIUM 9.4 mg/dL (8.5-10.3); CARBON DIOXIDE - CO2 25 mmol/L (21-32); CHLORIDE 107 mmol/L (101-111); CHOL/HDL RATIO 3.3 (<5.0); CHOLESTEROL 167 mg/dL; CREATININE 1.2 mg/dL (0.6-1.2); GLUCOSE 103 mg/dL (70-100); HDL CHOLESTEROL 51 mg/dL; IRON 100 ug/dL (45-182); LDL CHOLESTEROL,CALCULATED 95 mg/dL; LDL/HDL RATIO 1.9 (<3.6); SODIUM 138 mmol/L (135-145); TOTAL IRON BINDING CAPACITY 309 ug/dL (250-450); TOTAL PROTEIN 6.6 g/dL (6.7-8.2); TRANSFERRIN 221 mg/dL (180-329); VLDL CHOLESTEROL 21 mg/dL
== END 2019-11-29 23:59 | disposition home or self-care (01) ==
LOC: LAB.WCP 08:00
PROVIDERS: ATTEND Family Medicine
DX: E78.5 Hyperlipidemia, unspecified (principal); D64.9 Anemia, unspecified; J44.9 Chronic obstructive pulmonary disease, unspecified; E04.1 Nontoxic single thyroid nodule
CPT/HCPCS: 36415; 80053; 80061; 82607; 82728; 83540; 83721; 84443; 84466; 85025

== ENCOUNTER → 2020-01-01 | Outpatient (CLI) | payer MEDICARE, OTHER | LOC: LAB.WCP 18:40 | PROVIDERS: ATTEND Family Medicine | DX: D64.9 Anemia, unspecified (principal) | CPT/HCPCS: 82274 ==

== ENCOUNTER 2020-04-14 01:43 | Emergency (ER) | payer MEDICARE, OTHER ==
[2020-04-14 02:20] LABS: BASOPHILS # (AUTO) 0.1 10^3/uL (0.0-0.1); BASOPHILS % (AUTO) 0.9 %; EOSINOPHILS # (AUTO) 0.3 10^3/uL (0.0-0.7); EOSINOPHILS % (AUTO) 5.2 %; HGB - HEMOGLOBIN 12.1 g/dL (14.0-18.0); LYMPHOCYTES # (AUTO) 2.2 10^3/uL (1.5-3.5); LYMPHOCYTES % (AUTO) 39.2 %; MEAN CORPUSCULAR HEMOGLOBIN 34.1 pg (27.0-31.0); MEAN CORPUSCULAR HGB CONC 32.6 g/dL (32.0-36.0); MEAN CORPUSCULAR VOLUME 104.5 fL (80.0-94.0); MEAN PLATELET VOLUME 9.5 fL (7.4-11.4); MONOCYTES # (AUTO) 0.7 10^3/uL (0.0-1.0); MONOCYTES % (AUTO) 12.6 %; NEUTROPHILS # (AUTO) 2.3 10^3/uL (1.5-6.6); NEUTROPHILS % (AUTO) 41.9 %; PLT - PLATELET COUNT 190 10^3/uL (130-450); RED BLOOD COUNT 3.55 10^6/uL (4.70-6.10); RED CELL DISTRIBUTION WIDTH 12.2 % (12.0-15.0); WHITE BLOOD COUNT 5.5 x10^3/uL (4.8-10.8)
[2020-04-14 02:34] LABS: ALBUMIN 4.3 g/dL (3.2-5.5); ALBUMIN/GLOBULIN RATIO 1.7 (1.0-2.2); BILIRUBIN,TOTAL 0.5 mg/dL (0.2-1.0); CALCIUM 9.3 mg/dL (8.5-10.3); CREATININE 1.7 mg/dL (0.6-1.2); TOTAL PROTEIN 6.8 g/dL (6.7-8.2)
[2020-04-14] MEDS ORDERED: SODIUM CHLORIDE 0.9% 1,000 ML IV STA (03:21)
[2020-04-14] MEDS ORDERED: cefTRIAXone 1 GM in SODIUM CHLORIDE 0.9% MINIBAG 100 ML IV STA (03:21)
--- NOTE | 2020-04-14 03:26 | ED Physician Documentation ---
PD HPI CHEST PAIN - Stated complaint Stated Complaint: HEART RACING - Chief complaint Chief Complaint: Cardiac - History obtained from History obtained from: Patient - History of Present Illness Timing - onset: Enter time (2329), Today Timing - onset during: Rest Timing - duration: Minutes Timing - details: Abrupt onset, Now resolved Quality: Tightness, Sharp, Throbbing Location: Substernal, Left chest Radiation: Neck, Back Improved by: Other (spontaneously resolved) Worsened by: Other (nothing) Associated symptoms: Palpitations. No: Shortness of air, Diaphoresis, Nausea, Vomiting, Feeling faint / dizzy, General Weakness, Cough Similar symptoms before: Diagnosis (dehydration) Recently seen: Not recently seen - Additional information Additional information: Previously well 79-year-old male with a history of reflux and prostate cancer worked out in his yard today and the day prior and this evening when he got into bed he laid down on his left side which he usually does not do and as he was laying there he began to feel his heart pounding against the side of his chest. He felt the pain radiate up a radiate up into his neck and shoulder and he became quite concerned with this became a bit anxious and has come to the emergency department. He states that currently he is not having symptoms. He states symptoms started at about 11:30 at night. Review of Systems Constitutional: denies: Fever Eyes: denies: Decreased vision Ears: denies: Ear pain Nose: denies: Rhinorrhea / runny nose, Congestion Throat: denies: Sore throat Cardiac: reports: Chest pain / pressure, Palpitations. denies: Pedal edema, Calf pain Respiratory: denies: Dyspnea, Cough, Wheezing GI: denies: Abdominal Pain, Nausea, Vomiting : denies: Dysuria, Frequency PD PAST MEDICAL HISTORY - Past Medical History Past Medical History: Yes Cardiovascular: High cholesterol Respiratory: None Endocrine/Autoimmune: None GI: GERD : Other HEENT: None Psych: None Musculoskeletal: None Derm: None - Past Surgical History Past Surgical History: Yes HEENT: Cataracts - Present Medications Home Medications: Ambulatory Orders Medication Instructions Recorded Confirmed Aspirin [Ecotrin] 81 mg PO TUFR 05/23/14 04/14/20 Cetirizine [ZyrTEC] 10 mg PO DAILY 08/02/16 04/14/20 Multivitamin [Multiple Vitamins] 1 tab PO DAILY 08/02/16 04/14/20 raNITIdine [Zantac] 150 mg PO BID PRN 08/02/16 04/14/20 Simvastatin 20 mg PO QPM 11/02/18 04/14/20 Azithromycin [Zithromax] 250 mg PO DAILY #6 tablet 04/14/20 - Allergies Allergies/Adverse Reactions: Allergies Allergy/AdvReac Type Severity Reaction Status Date / Time No Known Drug Allergies Allergy Verified 04/14/20 02:19 - Social History Does the pt smoke?: No Smoking Status: Never smoker Does the pt drink ETOH?: Yes Does the pt have substance abuse?: No - Immunizations Immunizations are current?: Yes - POLST POLST Status: Full Code PD ED PE NORMAL - Vitals Vital signs reviewed: Yes (hypertensive ) - General General: Alert and 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, Well developed/nourished, Other (anxious ) - HEENT HEENT: Atraumatic, PERRL, EOMI - Neck Neck: Supple, no meningeal sign, No bony TTP - Cardiac Cardiac: No murmur, Other (tachy to 100) - Respiratory Respiratory: No respiratory distress, Clear bilaterally - Abdomen Abdomen: Soft, Non tender - Back Back: No CVA TTP, No spinal TTP - Derm Derm: Normal color, Warm and dry, No rash - Extremities Extremities: No deformity, Other (brawny edema bilat LE non-pitting ) - Neuro Neuro: Alert and 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, optometric tech 2-12 intact, No motor deficit, No sensory deficit, Normal speech Eye Opening: Spontaneous Motor: Obeys Commands Verbal: Oriented GCS Score: 15 - Psych Psych: Normal mood, Normal affect Results - Vitals Vitals: Vital Signs - 24 hr 04/14/20 02:12 Temperature 37.7 C Heart Rate 94 Respiratory 16 Rate Blood Pressure 154/80 H O2 Saturation 94 Oxygen O2 Source Room air - EKG (time done) 0149 Rate: Rate (enter#) (104) Rhythm: Sinus tachycardia, LAE (probable) [place]: LAD (borderline) Intervals: Prolonged MN (borderline) Compare to prior EKG: Unchanged from prior EKG (SPT 11-01-2018 no significant change) Computer interpretation: Agree with computer - Labs Labs: Laboratory Tests 04/14/20 04/14/20 04/14/20 02:18 02:18 02:18 WBC 5.5 RBC 3.55 L Hgb 12.1 L Hct 37.1 L MCV 104.5 H MCH 34.1 H MCHC 32.6 RDW 12.2 Plt Count 190 MPV 9.5 Neut # (Auto) 2.3 Lymph # (Auto) 2.2 Griggs # (Auto) 0.7 Eos # (Auto) 0.3 Baso # (Auto) 0.1 Absolute Nucleated RBC 0.00 Nucleated RBC % 0.0 D-Dimer 206.4 Sodium 143 Potassium 3.8 Chloride 106 Carbon Dioxide 24 Anion Gap 13.0 BUN 34 H Creatinine 1.7 H Estimated GFR (MDRD) 39 L Glucose 116 H Calcium 9.3 Total Bilirubin 0.5 AST 27 ALT 24 Alkaline Phosphatase 65 Troponin I High Sens Total Protein 6.8 Albumin 4.3 Globulin 2.5 Albumin/Globulin Ratio 1.7 Lipase 35 04/14/20 02:18 WBC RBC Hgb Hct MCV MCH MCHC RDW Plt Count MPV Neut # (Auto) Lymph # (Auto) Griggs # (Auto) Eos # (Auto) Baso # (Auto) Absolute Nucleated RBC Nucleated RBC % D-Dimer Sodium Potassium Chloride Carbon Dioxide Anion Gap BUN Creatinine Estimated GFR (MDRD) Glucose Calcium Total Bilirubin AST ALT Alkaline Phosphatase Troponin I High Sens 7.0 Total Protein Albumin Globulin Albumin/Globulin Ratio Lipase - Rads (name of study) chest Radiology: Prelim report reviewed (Impression: Subtle changes on the left, possibly infiltrate or pneumonitis.), EMP read indepedently, See rad report Procedures - IVC sono (time) 0320 Bedside IVC sono: IVC measures (cm) (1.2), IVC collapsed c insp (cm) (complete), Dehydration (est 1 liter deficit) PD MEDICAL DECISION MAKING - ED course Complexity details: reviewed old records, reviewed results, re-evaluated patient, considered differential, d/w patient ED course: 79-year-old male with symptoms of left-sided chest pain that is now resolved had an episode where he apparently was feeling his heart beating against the side of his chest. He is found to be mildly dehydrated on interrogation the inferior vena cava he is given some saline and x-ray of the chest is concerning for possible infiltrate in the left base. Patient is given Rocephin intravenously and we will give him a course of azithromycin. The remainder have a his work-up was otherwise unremarkable. Departure - Departure Disposition: Home, Self Care Clinical Impression: Dehydration Pneumonia Qualifiers: Pneumonia type: due to unspecified organism Laterality: left Lung location: unspecified part of lung Qualified Code(s): J18.9 - Pneumonia, unspecified organism Condition: Stable Instructions: ED Dehydration, ED Pneumonia Adult Follow-Up: Alison Puga DO [Primary Care Provider] - Prescriptions: Azithromycin [Zithromax] 250 mg PO DAILY #6 tablet
[2020-04-14] MEDS ORDERED: cefTRIAXone 1 GM VIAL ONE (03:35)
[2020-04-14 05:11] VITALS: BP 133/74
--- NOTE | 2020-04-14 10:14 | XRAY Report ---
PROCEDURE: Chest 1 View X-Ray INDICATIONS: chest pain TECHNIQUE: One view of the chest was acquired. COMPARISON: 11/01/2018 FINDINGS: Overlying EKG wires. Surgical changes and devices: None. Lungs and pleura: There is subtle opacity at the inferior lateral aspect of the left lower lobe. Th e lungs are otherwise clear. No significant pleural effusion or pneumothorax. Mediastinum: Mediastinal contours appear normal. Heart size is normal. Bones and chest wall: No suspicious bony lesions. Overlying soft tissues appear unremarkable. IMPRESSION: Subtle opacities of the left lung base may represent developing pneumonia. Agree with preliminary report. Reviewed by: Reid Chu DO on 04/14/2020 9:13 AM [facility] Approved by: Reid Chu DO on 04/14/2020 9:13 AM [facility] Station ID: [id number]
== END 2020-04-14 05:10 | disposition home or self-care (01) ==
LOC: ED 01:43
DX: J18.9 Pneumonia, unspecified organism (principal); E86.0 Dehydration; R00.0 Tachycardia, unspecified; R07.89 Other chest pain; Z79.82 Long term (current) use of aspirin
CPT/HCPCS: 36415; 80053; 83690; 84484; 85025; 85379; 93005; 96361; 96365; 99284

== ENCOUNTER 2020-05-27 08:00 | Outpatient (CLI) | payer MEDICARE, OTHER ==
[2020-05-27 11:47] LABS: ALBUMIN/GLOBULIN RATIO 1.7 (1.0-2.2); ALKALINE PHOSPHATASE 63 IU/L (42-121); ALT ALANINE AMINOTRANSFERASE 19 IU/L (10-60); AST ASPARTATE AMINOTRANSFERASE 18 IU/L (10-42); BILIRUBIN,TOTAL 0.8 mg/dL (0.2-1.0); BUN - BLOOD UREA NITROGEN 29 mg/dL (6-20); CALCIUM 9.3 mg/dL (8.5-10.3); CARBON DIOXIDE - CO2 24 mmol/L (21-32); CHLORIDE 105 mmol/L (101-111); CHOL/HDL RATIO 3.2 (<5.0); CHOLESTEROL 158 mg/dL; CREATININE 1.1 mg/dL (0.6-1.2); GFR - MDRD 65 (>89); GLUCOSE 134 mg/dL (70-100); HDL CHOLESTEROL 49 mg/dL; LDL CHOLESTEROL,CALCULATED 88 mg/dL; LDL/HDL RATIO 1.8 (<3.6); SODIUM 137 mmol/L (135-145); TOTAL PROTEIN 6.4 g/dL (6.7-8.2); TRIGLYCERIDES 103 mg/dL; VLDL CHOLESTEROL 21 mg/dL
[2020-05-27 12:01] LABS: THYROID STIMULATING HORMONE 2.04 uIU/mL (0.34-5.60)
[2020-05-27 12:05] LABS: BASOPHILS # (AUTO) 0.1 10^3/uL (0.0-0.1); BASOPHILS % (AUTO) 1.1 %; EOSINOPHILS # (AUTO) 0.4 10^3/uL (0.0-0.7); HCT - HEMATOCRIT 36.5 % (42.0-52.0); HGB - HEMOGLOBIN 11.9 g/dL (14.0-18.0); LYMPHOCYTES % (AUTO) 44.2 %; MEAN CORPUSCULAR HEMOGLOBIN 34.3 pg (27.0-31.0); MEAN CORPUSCULAR HGB CONC 32.6 g/dL (32.0-36.0); MEAN CORPUSCULAR VOLUME 105.2 fL (80.0-94.0); MONOCYTES # (AUTO) 0.4 10^3/uL (0.0-1.0); MONOCYTES % (AUTO) 9.8 %; NEUTROPHILS # (AUTO) 1.6 10^3/uL (1.5-6.6); NEUTROPHILS % (AUTO) 36.7 %; PLT - PLATELET COUNT 213 10^3/uL (130-450); RED BLOOD COUNT 3.47 10^6/uL (4.70-6.10); RED CELL DISTRIBUTION WIDTH 12.5 % (12.0-15.0); WHITE BLOOD COUNT 4.5 x10^3/uL (4.8-10.8)
== END 2020-05-27 23:59 | disposition home or self-care (01) ==
LOC: LAB.WCP 08:00
PROVIDERS: ATTEND Family Medicine
DX: E78.5 Hyperlipidemia, unspecified (principal); E04.1 Nontoxic single thyroid nodule; D64.9 Anemia, unspecified
CPT/HCPCS: 36415; 80053; 80061; 83721; 84443; 85025

== ENCOUNTER 2020-05-30 11:28 | Outpatient (CLI) | payer MEDICARE, OTHER ==
--- NOTE | 2020-05-30 16:55 | XRAY Report ---
PROCEDURE: Chest 2 View X-Ray INDICATIONS: PNEUMONIA TECHNIQUE: 2 view(s) of the chest. COMPARISON: 04/14/2020 single view chest. FINDINGS: Surgical changes and devices: None. Lungs and pleura: No pleural effusions or pneumothorax. Lungs are clear. Mediastinum: Mediastinal contours are normal. Heart size is normal. Bones and chest wall: No suspicious bony abnormalities. Soft tissues appear unremarkable. IMPRESSION: No pneumonia found. Reviewed by: Demetrius Hedrick MD on 05/30/2020 3:54 PM [facility] Approved by: Demetrius Hedrick MD on 05/30/2020 3:54 PM [facility] Station ID: [id number]
== END 2020-05-30 11:29 | disposition home or self-care (01) ==
LOC: DI.N 11:28
PROVIDERS: ATTEND Family Medicine
DX: J18.9 Pneumonia, unspecified organism (principal)

== ENCOUNTER 2020-08-29 08:00 | Outpatient (CLI) | payer MEDICARE, OTHER | END 2020-08-29 23:59 | disposition home or self-care (01) | LOC: LAB.N 08:00 | PROVIDERS: ATTEND Family Medicine | DX: J06.9 Acute upper respiratory infection, unspecified (principal); Z20.822 Contact with and (suspected) exposure to COVID-19 ==

== ENCOUNTER 2021-02-22 15:28 | Emergency (ER) | payer MEDICARE, OTHER ==
[2021-02-22] MEDS ORDERED: ASPIRIN 325 MG TABLET PO STA (15:51)
[2021-02-22] MEDS ORDERED: NITROGLYCERIN SL 0.4 MG TABLET SL STA (15:56)
--- NOTE | 2021-02-22 15:59 | ED Physician Documentation ---
History of Present Illness - Stated complaint Stated Complaint: CHEST PX - Chief complaint Chief Complaint: Cardiac - Additonal information Additional information: 80-year-old male presents the emergency department for evaluation of chest pain. Reports that he was at home this morning hanging lights inside his house across a bookcase and he began to have some chest discomfort as he was climbing been up and down off a stepstool. No nausea no vomiting some vague dizziness. He went to a local walk-in clinic where they referred him to the ER. This gentleman has never had a CO. He reports that 2018 he underwent a stress test and an echocardiogram that in review of the chart here was unremarkable. Patient is free of chest pain or any shortness of air at this time. Review of Systems Constitutional: denies: Fever, Chills Ears: reports: Reviewed and negative Nose: reports: Reviewed and negative Throat: reports: Reviewed and negative Cardiac: reports: Chest pain / pressure, Palpitations. denies: Pedal edema, Calf pain Respiratory: denies: Dyspnea, Cough GI: denies: Abdominal Pain, Vomiting : reports: Reviewed and negative Skin: reports: Reviewed and negative Musculoskeletal: reports: Reviewed and negative Neurologic: denies: Generalized weakness, Focal weakness, Numbness PD PAST MEDICAL HISTORY - Past Medical History Cardiovascular: High cholesterol Respiratory: None Endocrine/Autoimmune: None GI: GERD : Other HEENT: None Psych: None Musculoskeletal: None Derm: None - Past Surgical History Past Surgical History: Yes HEENT: Cataracts - Present Medications Home Medications: Ambulatory Orders Medication Instructions Recorded Confirmed Aspirin [Ecotrin] 81 mg PO TUFR 05/23/14 04/14/20 Cetirizine [ZyrTEC] 10 mg PO DAILY 08/02/16 04/14/20 Multivitamin [Multiple Vitamins] 1 tab PO DAILY 08/02/16 04/14/20 raNITIdine [Zantac] 150 mg PO BID PRN 08/02/16 04/14/20 Simvastatin 20 mg PO QPM 11/02/18 04/14/20 Azithromycin [Zithromax] 250 mg PO DAILY #6 tablet 04/14/20 Nitroglycerin [Nitrostat] 0.4 mg SL Q5MIN PRN #30 tablet 02/22/21 - Allergies Allergies/Adverse Reactions: Allergies Allergy/AdvReac Type Severity Reaction Status Date / Time No Known Drug Allergies Allergy Verified 02/22/21 15:33 - Social History Does the pt smoke?: No Smoking Status: Never smoker Does the pt drink ETOH?: Yes Does the pt have substance abuse?: No - Immunizations Immunizations are current?: Yes - POLST POLST Status: Full Code PD ED PE NORMAL - General General: Alert and 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, No acute distress - HEENT HEENT: PERRL - Neck Neck: Supple, no meningeal sign - Cardiac Cardiac: RRR, No murmur - Respiratory Respiratory: Clear bilaterally - Abdomen Abdomen: Normal bowel sounds, Soft, Non tender, Non distended Results - Vitals Vitals: Vital Signs - 24 hr 02/22/21 02/22/21 02/22/21 15:33 16:15 17:26 Temperature 36.5 C Heart Rate 100 85 75 Respiratory 16 25 H 21 Rate Blood Pressure 172/76 H 160/84 H 129/77 O2 Saturation 96 95 94 Oxygen O2 Source Room air - EKG (time done) 1541 Rate: Rate (enter#) (101) Rhythm: NSR [place]: LAD Intervals: Prolonged [place], Prolonged QT Ischemia: Normal ST segments Compare to prior EKG: Unchanged from prior EKG Computer interpretation: Agree with computer - Labs Labs: Laboratory Tests 02/22/21 02/22/21 02/22/21 15:59 15:59 15:59 WBC 5.8 RBC 3.77 L Hgb 12.7 L Hct 38.3 L MCV 101.6 H MCH 33.7 H MCHC 33.2 RDW 12.2 Plt Count 216 MPV 9.2 Neut # (Auto) 3.3 Lymph # (Auto) 1.6 Hart # (Auto) 0.6 Eos # (Auto) 0.3 Baso # (Auto) 0.0 Absolute Nucleated RBC 0.00 Nucleated RBC % 0.0 PT 10.7 INR 1.0 Sodium 137 Potassium 3.7 Chloride 103 Carbon Dioxide 23 Anion Gap 11.0 BUN 24 H Creatinine 1.1 Estimated GFR (MDRD) 65 L Glucose 110 H Calcium 9.6 Total Bilirubin 0.5 AST 22 ALT 20 Alkaline Phosphatase 67 Troponin I High Sens B-Natriuretic Peptide Total Protein 7.3 Albumin 4.5 Globulin 2.8 Albumin/Globulin Ratio 1.6 Lipase 26 02/22/21 02/22/21 02/22/21 15:59 15:59 17:02 WBC RBC Hgb Hct MCV MCH MCHC RDW Plt Count MPV Neut # (Auto) Lymph # (Auto) Hart # (Auto) Eos # (Auto) Baso # (Auto) Absolute Nucleated RBC Nucleated RBC % PT INR Sodium Potassium Chloride Carbon Dioxide Anion Gap BUN Creatinine Estimated GFR (MDRD) Glucose Calcium Total Bilirubin AST ALT Alkaline Phosphatase Troponin I High Sens 11.8 19.4 B-Natriuretic Peptide 76 Total Protein Albumin Globulin Albumin/Globulin Ratio Lipase - Rads (name of study) CXR Radiology: Final report received (COPD; no acute cardiopulmonary process) PD MEDICAL DECISION MAKING - ED course Complexity details: reviewed results, re-evaluated patient, considered differential, d/w patient ED course: 80-year-old male presents emergency department for evaluation of chest pain that began when he was stringing lights across the bookshelves at home. He described it as stabbing sternal and nonradiating. No associated diaphoresis nausea or vomiting. He did have an echocardiogram and a nuclear stress test approximately 2 years ago that did not show any worrisome findings. He presents here rather well appearing. He was given aspirin and nitroglycerin. Full relief of pain. EKG was nonischemic. Initial troponin 11.9. On repeat 19.4. Both of these are below the threshold of a positive troponin. Discussed with the patient that the etiology of his chest pain is not clear though given resolution with nitroglycerin and that it occurred during activity this was an anginal equivalent. He does have cardiology follow-up with [facility]. We will write a prescription for nitroglycerin. Advised patient to return immediately for return of his symptoms. Departure - Departure Disposition: Home, Self Care Clinical Impression: Angina of effort Chest pain Qualifiers: Chest pain type: unspecified Qualified Code(s): R07.9 - Chest pain, unspecified Condition: Stable Record reviewed to determine appropriate education?: Yes Instructions: Nitroglycerin Fast Act Dc, Angina Dc Follow-Up: Alison Puga DO [Primary Care Provider] - Prescriptions: Nitroglycerin [Nitrostat] 0.4 mg SL Q5MIN PRN #30 tablet PRN Reason: Chest Pain Comments: Fish you are seen today in the emergency department for chest pain that began while you are stringing lights in your home. Your screening EKG is unchanged from your most recent one in March. Your screening labs do not show any worrisome findings. And your chest x-ray was normal for age. However given that this chest pain occurred with activity it is concerning for angina or spasm of the coronary vessels. 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 You should have a repeat stress test and/or consideration of a cardiac angiogram. Please begin taking your 81 mg aspirin daily tomorrow. We have given you some nitroglycerin that you can use if you develop chest pain especially when walking. If using the nitroglycerin 10 minutes apart 2 times does not resolve your chest pain you are to return immediately to the ER for a second evaluation.
[2021-02-22 16:05] LABS: BASOPHILS % (AUTO) 0.7 %; EOSINOPHILS # (AUTO) 0.3 10^3/uL (0.0-0.7); EOSINOPHILS % (AUTO) 4.5 %; HCT - HEMATOCRIT 38.3 % (42.0-52.0); HGB - HEMOGLOBIN 12.7 g/dL (14.0-18.0); LYMPHOCYTES # (AUTO) 1.6 10^3/uL (1.5-3.5); MEAN CORPUSCULAR HEMOGLOBIN 33.7 pg (27.0-31.0); MEAN CORPUSCULAR HGB CONC 33.2 g/dL (32.0-36.0); MEAN CORPUSCULAR VOLUME 101.6 fL (80.0-94.0); MEAN PLATELET VOLUME 9.2 fL (7.4-11.4); MONOCYTES # (AUTO) 0.6 10^3/uL (0.0-1.0); MONOCYTES % (AUTO) 9.7 %; NEUTROPHILS # (AUTO) 3.3 10^3/uL (1.5-6.6); NEUTROPHILS % (AUTO) 57.8 %; PLT - PLATELET COUNT 216 10^3/uL (130-450); RED BLOOD COUNT 3.77 10^6/uL (4.70-6.10); RED CELL DISTRIBUTION WIDTH 12.2 % (12.0-15.0); WHITE BLOOD COUNT 5.8 x10^3/uL (4.8-10.8)
[2021-02-22 16:12] LABS: PT - PROTHROMBIN TIME 10.7 secs (9.9-12.6)
--- NOTE | 2021-02-22 16:12 | XRAY Report ---
PROCEDURE: Chest 1 View X-Ray INDICATIONS: Chest Pain TECHNIQUE: One view of the chest was acquired. COMPARISON: 05/30/2020, 11/01/2018. FINDINGS: Surgical changes and devices: None. Lungs and pleura: No pleural effusions or pneumothorax. There is hyperinflation of the lungs with f lattening of hemidiaphragms compatible COPD redemonstrated. No acute consolidation. There are a few l inear opacities within the right upper lung zone and peripheral left lung base which appear unchanged and are consistent with scarring. Mediastinum: Mediastinal contours appear normal. Heart size is normal. Bones and chest wall: No suspicious bony lesions. Overlying soft tissues appear unremarkable. IMPRESSION: 1. No acute cardiopulmonary disease. 2. Findings compatible with COPD redemonstrated. Reviewed by: Rigo Pederson MD on 02/22/2021 3:11 PM [place] Approved by: Rigo Pederson MD on 02/22/2021 3:11 PM [place] Station ID: [id number]
[2021-02-22 16:19] LABS: ALBUMIN 4.5 g/dL (3.2-5.5); ALBUMIN/GLOBULIN RATIO 1.6 (1.0-2.2); BILIRUBIN,TOTAL 0.5 mg/dL (0.2-1.0); CALCIUM 9.6 mg/dL (8.5-10.3); CREATININE 1.1 mg/dL (0.6-1.2); POTASSIUM 3.7 mmol/L (3.5-5.0); TOTAL PROTEIN 7.3 g/dL (6.7-8.2)
[2021-02-22 17:51] VITALS: BP 140/74
== END 2021-02-22 17:51 | disposition home or self-care (01) ==
LOC: ED 15:28
DX: I20.8 Other forms of angina pectoris (principal); I44.0 Atrioventricular block, first degree; R00.0 Tachycardia, unspecified; E78.00 Pure hypercholesterolemia, unspecified; Z79.82 Long term (current) use of aspirin
CPT/HCPCS: 36415; 71045; 80053; 83690; 83880; 84484; 85025; 85610; 93005; 99284; A9270

== ENCOUNTER 2021-07-02 07:07 | Outpatient (CLI) | payer MEDICARE, OTHER ==
[2021-07-02 11:55] LABS: BASOPHILS % (AUTO) 0.6 %; EOSINOPHILS # (AUTO) 0.4 10^3/uL (0.0-0.7); EOSINOPHILS % (AUTO) 5.5 %; HCT - HEMATOCRIT 37.3 % (42.0-52.0); HGB - HEMOGLOBIN 12.2 g/dL (14.0-18.0); LYMPHOCYTES # (AUTO) 2.3 10^3/uL (1.5-3.5); LYMPHOCYTES % (AUTO) 35.2 %; MEAN CORPUSCULAR HEMOGLOBIN 33.5 pg (27.0-31.0); MEAN CORPUSCULAR HGB CONC 32.7 g/dL (32.0-36.0); MEAN CORPUSCULAR VOLUME 102.5 fL (80.0-94.0); MEAN PLATELET VOLUME 10.1 fL (7.4-11.4); MONOCYTES # (AUTO) 0.7 10^3/uL (0.0-1.0); NEUTROPHILS # (AUTO) 3.1 10^3/uL (1.5-6.6); NEUTROPHILS % (AUTO) 47.5 %; PLT - PLATELET COUNT 226 10^3/uL (130-450); RED BLOOD COUNT 3.64 10^6/uL (4.70-6.10); RED CELL DISTRIBUTION WIDTH 12.3 % (12.0-15.0); WHITE BLOOD COUNT 6.6 x10^3/uL (4.8-10.8)
[2021-07-02 12:47] LABS: ALBUMIN 4.1 g/dL (3.2-5.5); ALBUMIN/GLOBULIN RATIO 1.6 (1.0-2.2); ALKALINE PHOSPHATASE 62 IU/L (42-121); ALT ALANINE AMINOTRANSFERASE 17 IU/L (10-60); AST ASPARTATE AMINOTRANSFERASE 20 IU/L (10-42); BUN - BLOOD UREA NITROGEN 27 mg/dL (6-20); CALCIUM 9.3 mg/dL (8.5-10.3); CARBON DIOXIDE - CO2 24 mmol/L (21-32); CHLORIDE 105 mmol/L (101-111); CHOL/HDL RATIO 3.3 (<5.0); CHOLESTEROL 159 mg/dL; CREATININE 1.1 mg/dL (0.6-1.2); GFR - MDRD 65 (>89); GLUCOSE 105 mg/dL (70-100); HDL CHOLESTEROL 48 mg/dL; LDL CHOLESTEROL,CALCULATED 95 mg/dL; SODIUM 139 mmol/L (135-145); TOTAL PROTEIN 6.7 g/dL (6.7-8.2); TRIGLYCERIDES 79 mg/dL; VLDL CHOLESTEROL 16 mg/dL
== END 2021-07-02 07:08 | disposition home or self-care (01) ==
LOC: LAB.N 07:07
PROVIDERS: ATTEND Family Medicine
DX: I10 Essential (primary) hypertension (principal); E78.5 Hyperlipidemia, unspecified
CPT/HCPCS: 36415; 80053; 80061; 83721; 85025

== ENCOUNTER 2021-10-17 14:18 | Emergency (ER) | payer MEDICARE, OTHER ==
[2021-10-17 14:47] VITALS: BP 161/81
--- NOTE | 2021-10-17 15:44 | XRAY Report ---
PROCEDURE: Ankle 3 View LT INDICATIONS: Trauma TECHNIQUE: 3 views of the ankle were acquired. COMPARISON: None FINDINGS: Bones: No fractures or dislocations. Ankle mortise is normally aligned. No suspicious bony lesions . Soft tissues: Lateral malleolar edema is present. Achilles tendon appears normal. IMPRESSION: No visualized acute fracture or dislocation. However, occult injury cannot be excluded. Recommend short interval imaging follow-up in 7-10 days as clinically indicated for additional evalua tion. Reviewed by: Susanna Haley MD on 10/17/2021 3:42 PM PDT Approved by: Susanna Haley MD on 10/17/2021 3:42 PM PDT Station ID: [id number]
--- NOTE | 2021-10-17 17:11 | ED Physician Documentation ---
PD HPI Fall - Stated complaint Stated Complaint: LEFT FOOT INJ - Chief complaint Chief Complaint: Trauma Ext - History obtained from History obtained from: Patient - History of Present Illness Mechanism of injury: Lost balance (he was up on stepladder about 3-4 feet and was stepping down, holding onto rope that let loose. Fell to left ankle, unclear if landed firmly or rolled ankle. Also abrasion left ortega, adn skin peel right dorsal forearm. Did not strike head.) Fall distance: Less than 5ft Where injury occurred: Home Timing - onset: Today Injury(ies) location: Right Upper Extremity, Left Lower Extremity. No: Head, Chest, Abdomen Associated symptoms: No: LOC, AMS, Neck pain, Weakness, Paresthesias Worsens with: Movement (unable to bear weight on left ankle.) Similar symptoms before: Has not had sx before Recently seen: Not recently seen Review of Systems Skin: reports: Abrasion (s) Musculoskeletal: denies: Neck pain, Back pain Neurologic: denies: Focal weakness, Numbness, Altered mental status, Headache, Head injury, LOC PD PAST MEDICAL HISTORY - Past Medical History Cardiovascular: High cholesterol Respiratory: None Endocrine/Autoimmune: None GI: GERD : Other HEENT: None Psych: None Musculoskeletal: None Derm: None - Past Surgical History Past Surgical History: Yes HEENT: Cataracts - Present Medications Home Medications: Ambulatory Orders Medication Instructions Recorded Confirmed Aspirin [Ecotrin] 81 mg PO TUFR 05/23/14 04/14/20 Cetirizine [ZyrTEC] 10 mg PO DAILY 08/02/16 04/14/20 Multivitamin [Multiple Vitamins] 1 tab PO DAILY 08/02/16 04/14/20 raNITIdine [Zantac] 150 mg PO BID PRN 08/02/16 04/14/20 Simvastatin 20 mg PO QPM 11/02/18 04/14/20 Azithromycin [Zithromax] 250 mg PO DAILY #6 tablet 04/14/20 Nitroglycerin [Nitrostat] 0.4 mg SL Q5MIN PRN #30 tablet 02/22/21 Oxycodone HCl/Acetaminophen 1 each PO Q6H PRN #18 tablet 10/17/21 [Percocet 5-325 mg Tablet] - Allergies Allergies/Adverse Reactions: Allergies Allergy/AdvReac Type Severity Reaction Status Date / Time No Known Drug Allergies Allergy Verified 10/17/21 14:47 - Social History Does the pt smoke?: No Smoking Status: Never smoker Does the pt drink ETOH?: Yes Does the pt have substance abuse?: No - Immunizations Immunizations are current?: Yes - POLST POLST Status: Full Code PD ED PE NORMAL - Vitals Vital signs reviewed: Yes - General General: Alert and 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, Well developed/nourished, Other (having pain from ankle. able to move right wrist/arm well. ) - HEENT HEENT: Atraumatic - Neck Neck: Supple, no meningeal sign, No bony TTP - Cardiac Cardiac: RRR, No murmur - Respiratory Respiratory: Clear bilaterally, Other (no chestwall tenderness. ) - Abdomen Abdomen: Soft, Non tender - Back Back: No spinal TTP - Derm Derm: Normal color, Warm and dry - Extremities Extremities: Other (left ankle with effusion and tenderness alia lateral. Also tender at calcaneal area. normal sensation, color, pulses, cap refill. abrasions left anterior lower leg. right dorsal forearm with partial thickness skin peel. No full thickness lac. ) - Neuro Neuro: Alert and 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, No motor deficit, No sensory deficit, Normal speech Results - Vitals Vitals: Vital Signs - 24 hr 10/17/21 10/17/21 10/17/21 14:42 14:47 16:47 Temperature 36.1 C L 36.1 C L 36.1 C L Heart Rate 81 81 81 Respiratory 16 16 16 Rate Blood Pressure 161/81 H 161/81 H 161/81 H O2 Saturation 98 98 98 10/17/21 20:31 Temperature 36.1 C L Heart Rate 81 Respiratory 16 Rate Blood Pressure 161/81 H O2 Saturation 98 Oxygen O2 Source Room air - Rads (name of study) left ankle Radiology: Prelim report reviewed (no fractures. COnsider occult injury.), See rad report PD MEDICAL DECISION MAKING - ED course Complexity details: reviewed results, re-evaluated patient (abrasions left ortega and right forearm cleansed and dressing. ), considered differential (ankle injury and is tender on heel as well. No visible fractures. Considered CT ankle/foot to eval at [facility]. However would not change plan currently if nondisplaced, so shared decision to f/u ortho and re-eval. ), d/w patient Departure - Departure Disposition: 01 Home, Self Care Clinical Impression: Fall from ladder Qualifiers: Encounter type: initial encounter Qualified Code(s): W11.XXXA - Fall on and from ladder, initial encounter Ankle sprain Qualifiers: Encounter type: initial encounter Involved ligament of ankle: unspecified ligament Laterality: left Qualified Code(s): S93.402A - Sprain of unspecified ligament of left ankle, initial encounter Forearm contusion Qualifiers: Encounter type: initial encounter Laterality: right Qualified Code(s): S50.11XA - Contusion of right forearm, initial encounter Lower leg abrasion Qualifiers: Encounter type: initial encounter Laterality: left Qualified Code(s): S80.812A - Abrasion, left lower leg, initial encounter Condition: Stable Record reviewed to determine appropriate education?: Yes Instructions: ED Avulsion Dermal, ED Sprain Ankle Prescriptions: Oxycodone HCl/Acetaminophen [Percocet 5-325 mg Tablet] 1 each PO Q6H PRN #18 tablet PRN Reason: pain Comments: Your x-ray does not show any obvious fractures. Consideration for very good sprain of the ankle with the swelling and pain. There could be occasionally occult fractures particularly in the heel that may not show up on plain x-ray. Initially the treatment would be the same with a cast boot nonweightbearing and crutches. Ice elevate and rest the ankle often to reduce swelling. Recheck in about 1 - 1 1/2 weeks for reevaluation and see if further treatments or imaging are needed. You will likely be in the cast boot for 3 to 4 weeks. Anti-inflammatory such as ibuprofen or naproxen 3 times daily with food. Add Tylenol every 4-6 hours if needed for pain. Alternatively you can use oxycodone/acetaminophen every 6 hours if needed for worse pain. I transmitted your prescriptions to [facility] in [place]. I am prescribing a short course of narcotic pain medication for you. These are potentially dangerous and addictive medications that should be used carefully. These medications may constipate you. Take an [id number] stool softener such as docusate twice daily with plenty of water while taking these medications. If you go 24 hours without a bowel movement, take [id number] MiraLAX, per package instructions. Do not drink or drive while taking these medications. If you received narcotic or sedating medications while in the emergency department do not drive for 24 hours. Store this medication in a safe, secure place and out of reach of children. It is a violation of federal law to give or sell this medication to another person or to use in a manner other than prescribed. The ED will not refill narcotic prescriptions, including prescriptions lost or stolen. You can dispose of unwanted medications at the [facility]'s office or at several pharmacies such as [facility]. Discharge Date/Time: 10/17/21 20:31
[2021-10-17] MEDS ORDERED: HYDROcod/ACETAM 5/325 MG TABLET PO STA (17:43)
[2021-10-17] MEDS ORDERED: KETOROLAC 30 MG/ML VIAL IM STA (17:43)
--- NOTE | 2021-10-18 14:15 | ED Physician Documentation ---
ED Addendum - Addendum Addendum: 10/18/21 14:13 The patient called and said his prescription was not available. [facility] called us and said they had not received 1. I looked up on our ambulatory orders and it look like it had been sent. I tried resending it and it would not allow me seeming like it had been sent. However [facility] says they do not have it so I canceled the first transmission and represcribed it and resent it. It appears to go through at this time.
== END 2021-10-17 20:31 | disposition home or self-care (01) ==
LOC: ED 14:18
DX: S93.402A Sprain of unspecified ligament of left ankle, initial encounter (principal); S50.11XA Contusion of right forearm, initial encounter; S80.812A Abrasion, left lower leg, initial encounter; W11.XXXA Fall on and from ladder, initial encounter
CPT/HCPCS: 73610; 96372; 99282; 99283; A9270

== ENCOUNTER 2021-11-14 12:06 | Outpatient (CLI) | payer MEDICARE, OTHER ==
[2021-11-14 12:34] LABS: CREATININE 1.1 mg/dL (0.6-1.2)
--- NOTE | 2021-11-14 13:49 | CT Report ---
PROCEDURE: LOWER EXTREMITY WO - LT INDICATIONS: NONDISPLACED FRACTURE OF CALCANEUS TECHNIQUE: Noncontrast 3-mm axial sections acquired from the distal tibial shaft to the talar dome, with coronal and sagittal reformats. For radiation dose reduction, the following was used: automated exposure c ontrol, adjustment of mA and/or kV according to patient size. COMPARISON: Left foot radiographs 11/12/2021. FINDINGS: Image quality: Excellent. Bones: There is a comminuted mildly displaced fracture of the calcaneus extending into the posterior subtalar facet with primary fracture line is seen extending into the lateral aspect of the posterior subtalar facet (Oh type 2a). There is up to a 5 mm gap along the fracture line at the posterior aspect of the posterior subtalar joint. Additional fracture components are seen extending into the m edial, lateral, and posterior calcaneal cortices as well as extending into the sinus tarsi and anteri or calcaneal process. Generalized osteopenia. Remaining visualized osseous structures are intact Soft tissues: Soft tissue edema is seen surrounding the ankle and hindfoot. The articular cartilages , ligaments, and tendons are not well evaluated with standard CT. There is fatty infiltration of the intrinsic foot musculature that is most likely related to chronic denervation changes. IMPRESSION: 1.Comminuted mildly displaced fracture of the calcaneus extending to the posterior subtalar facet (Sa nders type 2A). 2.Generalized osteopenia. 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 Reviewed by: Enrico Sewell MD on 11/14/2021 1:47 PM PDT Approved by: Enrico Sewell MD on 11/14/2021 1:47 PM PDT Station ID: [id number]
== END 2021-11-14 12:07 | disposition home or self-care (01) ==
LOC: DI 12:06
PROVIDERS: ATTEND Physician Assistant
DX: S92.002A Unspecified fracture of left calcaneus, initial encounter for closed fracture (principal); M85.862 Other specified disorders of bone density and structure, left lower leg
CPT/HCPCS: 36415; 82565

== ENCOUNTER 2021-12-09 02:39 | Outpatient (CLI) | payer MEDICARE, OTHER | END 2021-12-09 02:40 | disposition critical access hospital (66) | LOC: EMS 02:39 | DX: I47.1 Supraventricular tachycardia (principal) | CPT/HCPCS: A0425; A0427 ==

== ENCOUNTER 2021-12-09 03:00 | Emergency (ER) | payer MEDICARE, OTHER ==
--- NOTE | 2021-12-09 03:02 | ED Physician Documentation ---
History of Present Illness - Stated complaint Stated Complaint: PALPITATIONS - History obtained from History obtained from: Patient - History of Present Illness Timing: Enter time (01:00), Today Pain level max: 0 Pain level now: 0 Improved by: resolved with 6mg IV adenosine given by EMS - Additonal information Additional information: BIBA. At approximately 1 AM, patient was awake at home reading in bed when he turned on his side and experienced sudden onset of rapid palpitations. Denies chest pain/pressure/tightness, denies dyspnea, denies lightheadedness. He says he has had similar sensation of rapid palpitations before but episodes had always been self-limited, resolving prior to medical attention. Patient says he has had stress tests including nuclear stress tests in the past with consistently negative/unremarkable results (he estimates the most recent was 1-2 years ago). He is found to be in SVT by EMS with heart rate as high as 179, given 6mg IV adenosine with conversion to sinus tachycardia 120s with gradual decrease in rate en route and arrives with normal vital signs including heart rate 90s NSR and asymptomatic. Review of Systems Cardiac: reports: Palpitations. denies: Chest pain / pressure, Pedal edema, Calf pain Respiratory: reports: Reviewed and negative GI: reports: Reviewed and negative Musculoskeletal: denies: Extremity swelling PD PAST MEDICAL HISTORY - Past Medical History Cardiovascular: High cholesterol Respiratory: None Endocrine/Autoimmune: None GI: GERD : Other HEENT: None Psych: None Musculoskeletal: None Derm: None - Past Surgical History Past Surgical History: Yes HEENT: Cataracts - Present Medications Home Medications: Ambulatory Orders Medication Instructions Recorded Confirmed Aspirin [Ecotrin] 81 mg PO TUFR 05/23/14 04/14/20 Cetirizine [ZyrTEC] 10 mg PO DAILY 08/02/16 04/14/20 Multivitamin [Multiple Vitamins] 1 tab PO DAILY 08/02/16 04/14/20 raNITIdine [Zantac] 150 mg PO BID PRN 08/02/16 04/14/20 Simvastatin 20 mg PO QPM 11/02/18 04/14/20 Azithromycin [Zithromax] 250 mg PO DAILY #6 tablet 04/14/20 Nitroglycerin [Nitrostat] 0.4 mg SL Q5MIN PRN #30 tablet 02/22/21 Oxycodone HCl/Acetaminophen 1 each PO Q6H PRN #18 tablet 10/17/21 [Percocet 5-325 mg Tablet] Oxycodone HCl/Acetaminophen 1 each PO Q6H PRN #14 tablet 10/18/21 [Percocet 5-325 mg Tablet] - Allergies Allergies/Adverse Reactions: Allergies Allergy/AdvReac Type Severity Reaction Status Date / Time No Known Drug Allergies Allergy Verified 12/09/21 03:08 - Social History Does the pt smoke?: No Smoking Status: Never smoker Does the pt drink ETOH?: Yes Does the pt have substance abuse?: No - Immunizations Immunizations are current?: Yes - POLST POLST Status: Full Code PD ED PE NORMAL - Vitals Vital signs reviewed: Yes - General General: Alert and 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, No acute distress, Well developed/nourished - Cardiac Cardiac: RRR, No murmur, No gallop, No rub - Respiratory Respiratory: No respiratory distress, Clear bilaterally - Abdomen Abdomen: Soft, Non tender - Extremities Extremities: No edema Results - Vitals Vitals: Vital Signs - 24 hr 12/09/21 12/09/21 12/09/21 03:08 04:30 05:04 Temperature 36.4 C L 36.4 C L Heart Rate 97 84 83 Respiratory 18 18 16 Rate Blood Pressure 145/81 H 129/72 124/68 O2 Saturation 99 98 98 Oxygen O2 Source Room air - EKG (time done) No standard instances Rate: Rate (enter#) (100) Rhythm: Sinus tachycardia [place]: Normal Intervals: Prolonged [place] (borderline) QRS: Normal Ischemia: ST depression (minimal ST depression in V3-V6 with similar finding on at least the last three EKGs in [facility]) Compare to prior EKG: Unchanged from prior EKG - Labs Labs: Laboratory Tests 12/09/21 12/09/21 03:20 03:20 WBC 6.1 RBC 3.30 L Hgb 10.9 L Hct 33.0 L MCV 100.0 H MCH 33.0 H MCHC 33.0 RDW 12.7 Plt Count 200 MPV 9.5 Neut # (Auto) 3.8 Lymph # (Auto) 1.3 L [place] # (Auto) 0.6 Eos # (Auto) 0.2 Baso # (Auto) 0.1 Absolute Nucleated RBC 0.00 Nucleated RBC % 0.0 Sodium 139 Potassium 3.9 Chloride 107 Carbon Dioxide 23 Anion Gap 9.0 BUN 31 H Creatinine 1.2 Estimated GFR (MDRD) 58 L Glucose 128 H Calcium 8.8 PD MEDICAL DECISION MAKING - ED course Complexity details: reviewed old records, reviewed results, re-evaluated patient, considered differential, d/w patient ED course: Presents with SVT (EMS provides rhythm strips and 12-lead EKG from field, confirms report of heart rate in 170s) which converted to sinus tachycardia in field with single-dose adenosine. He arrives asymptomatic with normal vital signs. No concerning findings on basic blood tests (mild anemia , comparable h/h to previous results; elevated bun with normal creatinine). Normal potassium, normal calcium levels. he had no ectopy nor arrhythmia during ED telemetric monitoring. Results d/w patient, discharged after diagnosis discussed and return precautions reviewed. Departure - Departure Disposition: 01 Home, Self Care Clinical Impression: SVT (supraventricular tachycardia) Condition: Good Instructions: ED Tachycardia Pat PSVT Comments: Follow up with your tariff expert, next available appointment. Further testing might be necessary even if your symptoms do not reoccur. Discharge Date/Time: 12/09/21 05:04
[2021-12-09 03:28] LABS: BASOPHILS # (AUTO) 0.1 10^3/uL (0.0-0.1); BASOPHILS % (AUTO) 0.8 %; EOSINOPHILS # (AUTO) 0.2 10^3/uL (0.0-0.7); HGB - HEMOGLOBIN 10.9 g/dL (14.0-18.0); LYMPHOCYTES # (AUTO) 1.3 10^3/uL (1.5-3.5); LYMPHOCYTES % (AUTO) 21.6 %; MEAN PLATELET VOLUME 9.5 fL (7.4-11.4); MONOCYTES # (AUTO) 0.6 10^3/uL (0.0-1.0); MONOCYTES % (AUTO) 10.5 %; NEUTROPHILS # (AUTO) 3.8 10^3/uL (1.5-6.6); NEUTROPHILS % (AUTO) 62.8 %; PLT - PLATELET COUNT 200 10^3/uL (130-450); RED CELL DISTRIBUTION WIDTH 12.7 % (12.0-15.0); WHITE BLOOD COUNT 6.1 x10^3/uL (4.8-10.8)
[2021-12-09 03:37] LABS: CALCIUM 8.8 mg/dL (8.5-10.3); CREATININE 1.2 mg/dL (0.6-1.2); POTASSIUM 3.9 mmol/L (3.5-5.0)
[2021-12-09 05:06] VITALS: BP 124/68
== END 2021-12-09 05:04 | disposition home or self-care (01) ==
LOC: EDUNIT# → ED 03:00
DX: I47.1 Supraventricular tachycardia (principal)
CPT/HCPCS: 36415; 80048; 85025; 93005; 99283; 99284

== ENCOUNTER 2021-12-29 08:00 | Outpatient (CLI) | payer MEDICARE, OTHER ==
--- NOTE | 2021-12-29 13:21 | XRAY Report ---
PROCEDURE: Calcaneus LT INDICATIONS: LEFT CALCANEUS FX TECHNIQUE: Two views of the calcaneus were acquired. COMPARISON: CT of left foot dated 11/14/2021 FINDINGS: Bones: There is interval healing at patient's known severely comminuted calcaneal fracture sites with increased sclerosis. Overall left foot alignment is not significantly changed from prior study. No n ew fracture or dislocation is seen. Small plantar calcaneal enthesophyte is seen. No suspicious bony lesions. Soft tissues: No suspicious calcifications. Achilles tendon appears normal. IMPRESSION: Interval healing at patient's known severely comminuted calcaneal fracture sites. Stable left alignme nt. No new fracture or dislocation. Reviewed by: Zeke Menard MD on 12/29/2021 1:19 PM PDT Approved by: Zeke Menard MD on 12/29/2021 1:19 PM PDT Station ID: [id number]
== END 2021-12-29 23:59 | disposition home or self-care (01) ==
LOC: DI.WOS 08:00
PROVIDERS: ATTEND Physician Assistant
DX: S92.015D Nondisplaced fracture of body of left calcaneus, subsequent encounter for fracture with routine healing (principal)

== ENCOUNTER 2022-02-10 14:41 | Outpatient (CLI) | payer MEDICARE, OTHER ==
--- NOTE | 2022-02-10 11:24 | XRAY Report ---
PROCEDURE: Calcaneus LT INDICATIONS: CALCANEUS FRACTURE LEFT TECHNIQUE: Two views of the calcaneus were acquired. COMPARISON: 12/29/2021 FINDINGS: Bones: Linear sclerosis noted at the site of prior calcaneal fracture. Small calcaneal spur noted. No persistent lucency. Joint spaces are preserved. Soft tissues: No suspicious calcifications. Achilles tendon appears normal. IMPRESSION: Healed calcaneal fracture Reviewed by: Tamir Jones MD on 02/10/2022 10:22 AM [facility] Approved by: Tamir Jones MD on 02/10/2022 10:22 AM [facility] Station ID: [id number]
== END 2022-02-10 14:42 | disposition home or self-care (01) ==
LOC: DI.WOS 14:41
PROVIDERS: ATTEND Orthopaedic Surgery
DX: S92.015D Nondisplaced fracture of body of left calcaneus, subsequent encounter for fracture with routine healing (principal)

== ENCOUNTER 2022-05-06 18:39 | Emergency (ER) | payer MEDICARE, OTHER ==
[2022-05-06 19:03] LABS: BASOPHILS # (AUTO) 0.1 10^3/uL (0.0-0.1); BASOPHILS % (AUTO) 0.8 %; EOSINOPHILS # (AUTO) 0.2 10^3/uL (0.0-0.7); EOSINOPHILS % (AUTO) 2.9 %; HCT - HEMATOCRIT 36.8 % (42.0-52.0); HGB - HEMOGLOBIN 11.8 g/dL (14.0-18.0); LYMPHOCYTES # (AUTO) 1.5 10^3/uL (1.5-3.5); LYMPHOCYTES % (AUTO) 25.1 %; MEAN CORPUSCULAR HEMOGLOBIN 32.5 pg (27.0-31.0); MEAN CORPUSCULAR HGB CONC 32.1 g/dL (32.0-36.0); MEAN CORPUSCULAR VOLUME 101.4 fL (80.0-94.0); MEAN PLATELET VOLUME 9.3 fL (7.4-11.4); MONOCYTES # (AUTO) 0.6 10^3/uL (0.0-1.0); MONOCYTES % (AUTO) 10.4 %; NEUTROPHILS # (AUTO) 3.7 10^3/uL (1.5-6.6); NEUTROPHILS % (AUTO) 60.5 %; PLT - PLATELET COUNT 218 10^3/uL (130-450); RED BLOOD COUNT 3.63 10^6/uL (4.70-6.10); RED CELL DISTRIBUTION WIDTH 12.7 % (12.0-15.0); WHITE BLOOD COUNT 6.1 x10^3/uL (4.8-10.8)
[2022-05-06 19:14] LABS: ALBUMIN 4.5 g/dL (3.2-5.5); ALBUMIN/GLOBULIN RATIO 1.6 (1.0-2.2); BILIRUBIN,TOTAL 0.9 mg/dL (0.2-1.0); CALCIUM 9.9 mg/dL (8.5-10.3); POTASSIUM 4.2 mmol/L (3.5-5.0); TOTAL PROTEIN 7.4 g/dL (6.7-8.2)
--- NOTE | 2022-05-06 19:17 | XRAY Report ---
PROCEDURE: Chest 1 View X-Ray INDICATIONS: Chest pain TECHNIQUE: One view of the chest was acquired. COMPARISON: 02/22/2021 FINDINGS: Surgical changes and devices: None. Lungs and pleura: No pleural effusions or pneumothorax. Lungs are clear. Mediastinum: Mediastinal contours appear normal. Heart size is normal. Bones and chest wall: No suspicious bony lesions. Overlying soft tissues appear unremarkable. IMPRESSION: No acute cardiopulmonary process demonstrated radiographically. Reviewed by: Randy Butcher MD on 05/06/2022 7:16 PM PST Approved by: Randy Butcher MD on 05/06/2022 7:16 PM [facility] Station ID: [id number]
[2022-05-06] MEDS ORDERED: METOPROLOL TARTRATE 50 MG TABLET PO STA (20:53)
--- NOTE | 2022-05-06 21:28 | ED Physician Documentation ---
PD HPI CHEST PAIN - Stated complaint Stated Complaint: CP/BP HIGH - Chief complaint Chief Complaint: Cardiac - History obtained from History obtained from: Patient, Family - Additional information Additional information: The patient comes to the emergency department chief complaint of chest pain on and off for years but with an episode that was little worse today. The patient states he gets the pain in his left lateral chest, inferior to his breast and further left. He states that it is not really a pain is much as a pressure and fullness. He states it would last anywhere from a minute to several minutes, but then go away. He states he is not really having any of the symptoms right now. His daughter states that he has been under a lot of stress because of a debilitating condition that his has and recent outlay of funds to try to outfit the house so that she can get around. The patient when he has had these symptoms in the past, has had extensive cardiac work-up both here and at [facility], including nuclear medicine studies, stress test, and cardiology consultation. He has been cleared every time and has no known history of coronary artery disease. The patient denies any exertional component to his symptoms. He states that he is otherwise fairly healthy. He denies any other complaints at this time. No associated symptoms such as shortness of breath, nausea, lightheadedness, or diaphoresis. PD PAST MEDICAL HISTORY - Past Medical History Cardiovascular: High cholesterol Respiratory: None Endocrine/Autoimmune: None GI: GERD : Other HEENT: None Psych: None Musculoskeletal: None Derm: None - Past Surgical History Past Surgical History: Yes HEENT: Cataracts - Present Medications Home Medications: Ambulatory Orders Medication Instructions Recorded Confirmed Aspirin [Ecotrin] 81 mg PO TUFR 05/23/14 04/14/20 Cetirizine [ZyrTEC] 10 mg PO DAILY 08/02/16 04/14/20 Multivitamin [Multiple Vitamins] 1 tab PO DAILY 08/02/16 04/14/20 raNITIdine [Zantac] 150 mg PO BID PRN 08/02/16 04/14/20 Simvastatin 20 mg PO QPM 11/02/18 04/14/20 Azithromycin [Zithromax] 250 mg PO DAILY #6 tablet 04/14/20 Nitroglycerin [Nitrostat] 0.4 mg SL Q5MIN PRN #30 tablet 02/22/21 Oxycodone HCl/Acetaminophen 1 each PO Q6H PRN #18 tablet 10/17/21 [Percocet 5-325 mg Tablet] Oxycodone HCl/Acetaminophen 1 each PO Q6H PRN #14 tablet 10/18/21 [Percocet 5-325 mg Tablet] Metoprolol Succinate [Toprol Xl] 25 mg PO DAILY #30 tablet 05/06/22 - Allergies Allergies/Adverse Reactions: Allergies Allergy/AdvReac Type Severity Reaction Status Date / Time No Known Drug Allergies Allergy Verified 05/06/22 18:48 - Social History Does the pt smoke?: No Smoking Status: Never smoker Does the pt drink ETOH?: Yes Does the pt have substance abuse?: No - Immunizations Immunizations are current?: Yes - POLST POLST Status: Full Code PD ED PE NORMAL - Vitals Vital signs reviewed: Yes - General General: Alert and 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, No acute distress, Well developed/nourished - HEENT HEENT: Atraumatic, PERRL, EOMI, Moist mucous membranes - Neck Neck: Supple, no meningeal sign - Cardiac Cardiac: RRR, No murmur, Strong equal pulses - Respiratory Respiratory: No respiratory distress, Clear bilaterally - Abdomen Abdomen: Soft, Non tender, Non distended - Derm Derm: Normal color, Warm and dry, No rash - Extremities Extremities: No deformity, Other (Chronic edema of peripheral vascular disease) - Neuro Neuro: Alert and 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, 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, Normal speech - Psych Psych: Normal mood, Normal affect Results - Vitals Vitals: Vital Signs - 24 hr 05/06/22 18:45 Temperature 97.7 C H Heart Rate 78 Respiratory 15 Rate Blood Pressure 176/68 H O2 Saturation 100 Oxygen O2 Source Room air - EKG (time done) 1855 Rate: Rate (enter#) (74) Rhythm: NSR, LAE [place]: Normal Intervals: Normal [place] QRS: Normal Ischemia: Normal ST segments Compare to prior EKG: Old EKG unavailable Computer interpretation: Agree with computer - Labs Labs: Laboratory Tests 05/06/22 05/06/22 05/06/22 18:55 18:55 18:55 WBC 6.1 RBC 3.63 L Hgb 11.8 L Hct 36.8 L MCV 101.4 H MCH 32.5 H MCHC 32.1 RDW 12.7 Plt Count 218 MPV 9.3 Neut # (Auto) 3.7 Lymph # (Auto) 1.5 [place] # (Auto) 0.6 Eos # (Auto) 0.2 Baso # (Auto) 0.1 Absolute Nucleated RBC 0.00 Nucleated RBC % 0.0 Sodium 137 Potassium 4.2 Chloride 103 Carbon Dioxide 22 Anion Gap 12.0 BUN 31 H Creatinine 1.0 Estimated GFR (MDRD) 72 L Glucose 107 H Calcium 9.9 Total Bilirubin 0.9 AST 18 ALT 13 Alkaline Phosphatase 57 Troponin I High Sens 4.1 Total Protein 7.4 Albumin 4.5 Globulin 2.9 Albumin/Globulin Ratio 1.6 Lipase 30 05/06/22 20:55 WBC RBC Hgb Hct MCV MCH MCHC RDW Plt Count MPV Neut # (Auto) Lymph # (Auto) [place] # (Auto) Eos # (Auto) Baso # (Auto) Absolute Nucleated RBC Nucleated RBC % Sodium Potassium Chloride Carbon Dioxide Anion Gap BUN Creatinine Estimated GFR (MDRD) Glucose Calcium Total Bilirubin AST ALT Alkaline Phosphatase Troponin I High Sens 9.9 Total Protein Albumin Globulin Albumin/Globulin Ratio Lipase PD Medical Decision Making - ED course Complexity details: reviewed old records, reviewed results, re-evaluated patient, considered differential, d/w patient, d/w family ED course: I reviewed the patient's old records, including his most recent cardiac work-up with nuclear med stress test in late 2019. This was without findings of reversible perfusion defects. The patient was worked up here with CBC, ER abdominal panel, and serial troponins, all of which were ordered and reviewed by me. His CBC and ER abdominal panel were unremarkable. Both of his troponins were negative. I discussed with the patient and his daughter that as far as his chest pain, I am not exactly sure what is causing it but there is no evidence of an acute coronary syndrome or other emergent cause of his chest pain today. As far as the blood pressure, his blood pressure has been running high for about the last week which the daughter thinks is most likely related to stress. However, since it is persistently elevated, I do not mind starting the patient on medication but I have advised them that they will need to follow-up with the patient's primary doctor to determine whether the regimen we choose is what they would like to do in the long-term. I have given the patient a dose of metoprolol 50 mg p.o. here, as his blood pressures have been persistently elevated to a significant level. I will put him on metoprolol 25 mg daily for now until he can see his primary doctor. We have discussed the usual indications for return. Departure - Departure Disposition: 01 Home, Self Care Clinical Impression: Atypical chest pain Condition: Stable Instructions: ED Chest Pain Atypical Unkn Cause Prescriptions: Metoprolol Succinate [Toprol Xl] 25 mg PO DAILY #30 tablet Comments: Your second set of cardiac enzymes also looked good. Your prescription for blood pressure medication has been electronically transmitted to the [facility] in [place], your pharmacy of choice on record. Please schedule the soonest possible follow-up appointment with your primary doctor to discuss management of your blood pressure. As far as her chest pain, it is not clear what is causing it. Your last nuclear medicine stress test was about 3-1/2 years ago in late 2019, and did not show any coronary artery disease. It would be good to speak with your doctor about having another stress test done, should you continue to have the uptick in pain.
[2022-05-06 22:03] VITALS: BP 149/75
== END 2022-05-06 22:02 | disposition home or self-care (01) ==
LOC: ED 18:39
DX: R07.89 Other chest pain (principal); R03.0 Elevated blood-pressure reading, without diagnosis of hypertension
CPT/HCPCS: 36415; 71045; 80053; 83690; 84484; 85025; 93005; 99284; A9270

== ENCOUNTER 2023-03-12 09:10 | Outpatient (CLI) | payer MEDICARE, OTHER ==
[2023-03-12 12:34] LABS: BASOPHILS % (AUTO) 0.8 %; EOSINOPHILS # (AUTO) 0.3 10^3/uL (0.0-0.7); EOSINOPHILS % (AUTO) 6.5 %; HGB - HEMOGLOBIN 11.1 g/dL (14.0-18.0); LYMPHOCYTES # (AUTO) 1.4 10^3/uL (1.5-3.5); LYMPHOCYTES % (AUTO) 28.8 %; MEAN CORPUSCULAR HEMOGLOBIN 32.7 pg (27.0-31.0); MEAN CORPUSCULAR HGB CONC 31.7 g/dL (32.0-36.0); MEAN CORPUSCULAR VOLUME 103.2 fL (80.0-94.0); MEAN PLATELET VOLUME 10.4 fL (7.4-11.4); MONOCYTES # (AUTO) 0.7 10^3/uL (0.0-1.0); MONOCYTES % (AUTO) 13.2 %; NEUTROPHILS # (AUTO) 2.5 10^3/uL (1.5-6.6); NEUTROPHILS % (AUTO) 50.5 %; PLT - PLATELET COUNT 205 10^3/uL (130-450); RED BLOOD COUNT 3.39 10^6/uL (4.70-6.10); RED CELL DISTRIBUTION WIDTH 12.6 % (12.0-15.0); WHITE BLOOD COUNT 4.9 x10^3/uL (4.8-10.8)
[2023-03-12 13:39] LABS: ALBUMIN 3.9 g/dL (3.2-5.5); ALBUMIN/GLOBULIN RATIO 1.8 (1.0-2.2); ALKALINE PHOSPHATASE 64 IU/L (42-121); ALT ALANINE AMINOTRANSFERASE 14 IU/L (10-60); AST ASPARTATE AMINOTRANSFERASE 15 IU/L (10-42); BILIRUBIN,TOTAL 0.5 mg/dL (0.2-1.0); BUN - BLOOD UREA NITROGEN 22 mg/dL (6-20); CALCIUM 9.3 mg/dL (8.5-10.3); CARBON DIOXIDE - CO2 25 mmol/L (21-32); CHLORIDE 107 mmol/L (101-111); CHOLESTEROL 140 mg/dL; CREATININE 1.2 mg/dL (0.6-1.3); GFR - MDRD 58 (>89); GLUCOSE 101 mg/dL (74-104); HDL CHOLESTEROL 46 mg/dL; LDL CHOLESTEROL,CALCULATED 74 mg/dL; LDL/HDL RATIO 1.6 (<3.6); POTASSIUM 4.4 mmol/L (3.5-4.5); SODIUM 140 mmol/L (135-145); TOTAL PROTEIN 6.1 g/dL (6.4-8.9); TRIGLYCERIDES 99 mg/dL (48-352); VLDL CHOLESTEROL 20 mg/dL
== END 2023-03-12 09:11 | disposition home or self-care (01) ==
LOC: LAB.N 09:10
PROVIDERS: ATTEND Physician Assistant
DX: E78.5 Hyperlipidemia, unspecified (principal); Z79.899 Other long term (current) drug therapy; Z85.46 Personal history of malignant neoplasm of prostate; D64.9 Anemia, unspecified; Z90.79 Acquired absence of other genital organ(s); Z92.3 Personal history of irradiation
CPT/HCPCS: 36415; 80053; 80061; 83721; 84153; 85025

== ENCOUNTER 2023-05-21 11:02 | Outpatient (CLI) | payer MEDICARE, OTHER ==
--- NOTE | 2023-05-21 13:45 | XRAY Report ---
PROCEDURE: Foot 1-2V LT INDICATIONS: LEFT HEEL PAIN TECHNIQUE: 2 views of the foot were acquired. COMPARISON: None FINDINGS: Bones: No fractures or dislocations. No suspicious bony lesions. Plantar calcaneal enthesophyte. Soft tissues: No tibiotalar joint effusion. Achilles tendon appears normal. Midfoot to forefoot do rsal swelling. IMPRESSION: Midfoot to forefoot dorsal swelling, without underlying bony abnormality. Reviewed by: Matty Anand MD on 05/21/2023 1:44 PM [facility] Approved by: Matty Anand MD on 05/21/2023 1:44 PM [facility] Station ID: [id number]
== END 2023-05-21 11:03 | disposition home or self-care (01) ==
LOC: DI 11:02
PROVIDERS: ATTEND Physician Assistant
DX: M79.672 Pain in left foot (principal); R22.42 Localized swelling, mass and lump, left lower limb

== ENCOUNTER 2023-07-08 09:59 | Outpatient (CLI) | payer MEDICARE, OTHER ==
[2023-07-08 10:21] LABS: CALCIUM 10.1 mg/dL (8.5-10.3); CREATININE 1.5 mg/dL (0.6-1.3); POTASSIUM 4.2 mmol/L (3.5-4.5)
== END 2023-07-08 10:00 | disposition home or self-care (01) ==
LOC: LAB 09:59
PROVIDERS: ATTEND Physician Assistant Medical
DX: R60.9 Edema, unspecified (principal)
CPT/HCPCS: 36415; 80048

== ENCOUNTER 2023-07-26 13:37 | Outpatient (CLI) | payer MEDICARE, OTHER ==
[2023-07-26 17:58] LABS: CREATININE 1.4 mg/dL (0.6-1.3)
== END 2023-07-26 13:38 | disposition home or self-care (01) ==
LOC: LAB.N 13:37
PROVIDERS: ATTEND Physician Assistant
DX: N17.9 Acute kidney failure, unspecified (principal); N18.9 Chronic kidney disease, unspecified
CPT/HCPCS: 36415; 80048

== ENCOUNTER 2023-08-05 10:04 | Outpatient (CLI) | payer MEDICARE, OTHER | END 2023-08-05 10:05 | disposition home or self-care (01) | LOC: DI 10:04 | PROVIDERS: ATTEND Physician Assistant Medical | DX: R60.9 Edema, unspecified (principal); I07.1 Rheumatic tricuspid insufficiency; I87.8 Other specified disorders of veins | CPT/HCPCS: 93307 ==

== ENCOUNTER 2023-11-23 08:00 | Outpatient (CLI) | payer MEDICARE, OTHER ==
[2023-11-23 12:27] LABS: BASOPHILS % (AUTO) 0.8 %; EOSINOPHILS # (AUTO) 0.3 10^3/uL (0.0-0.7); EOSINOPHILS % (AUTO) 6.5 %; HCT - HEMATOCRIT 35.2 % (42.0-52.0); HGB - HEMOGLOBIN 11.3 g/dL (14.0-18.0); LYMPHOCYTES # (AUTO) 1.8 10^3/uL (1.5-3.5); LYMPHOCYTES % (AUTO) 36.7 %; MEAN CORPUSCULAR HEMOGLOBIN 33.3 pg (27.0-31.0); MEAN CORPUSCULAR HGB CONC 32.1 g/dL (32.0-36.0); MEAN CORPUSCULAR VOLUME 103.8 fL (80.0-94.0); MEAN PLATELET VOLUME 10.2 fL (7.4-11.4); MONOCYTES # (AUTO) 0.4 10^3/uL (0.0-1.0); NEUTROPHILS # (AUTO) 2.2 10^3/uL (1.5-6.6); NEUTROPHILS % (AUTO) 46.6 %; PLT - PLATELET COUNT 199 10^3/uL (130-450); RED BLOOD COUNT 3.39 10^6/uL (4.70-6.10); RED CELL DISTRIBUTION WIDTH 12.3 % (12.0-15.0); WHITE BLOOD COUNT 4.8 x10^3/uL (4.8-10.8)
[2023-11-23 12:41] LABS: CALCIUM 9.2 mg/dL (8.5-10.3); CREATININE 1.2 mg/dL (0.6-1.3); POTASSIUM 3.9 mmol/L (3.5-4.5)
== END 2023-11-23 23:59 | disposition home or self-care (01) ==
LOC: LAB.N 08:00
PROVIDERS: ATTEND Physician Assistant Medical
DX: R60.9 Edema, unspecified (principal); Z85.46 Personal history of malignant neoplasm of prostate
CPT/HCPCS: 36415; 80048; 84153; 85025